=== PATIENT | female | born 1980 | race Caucasian/White ===

== ENCOUNTER 2019-10-06 13:23 | Inpatient (IN) | payer OTHER, SELFPAY ==
--- NOTE | ~2019-10-06 | XR_ITS ---
EXAMINATION: XR abdomen/kub 1V DATE: 10/07/2019 10:47 INDICATION: Abdominal pain and bloating. TECHNIQUE: A supine view of the abdomen was obtained. COMPARISON: CT abdomen and pelvis 10/06/2019 FINDINGS: There are no dilated loops of bowel. There is a small volume of stool in the colon. IMPRESSION: 1. Normal bowel gas pattern. Reviewed, dictated and finalized at location A.
--- NOTE | ~2019-10-06 | CT_ITS ---
EXAMINATION: CT abdomen pelvis w con DATE: 10/06/2019 15:42 INDICATION: Lower abdominal pain. History of kidney stone and infection. TECHNIQUE: Computed tomography (CT) of the abdomen and pelvis was performed with 100 cc Omnipaque 350 intravenous contrast. Automated exposure control and iterative reconstruction technique were employe d. Exam dose: 263.18 mGy-cm total exam DLP. COMPARISON: 01/11/2019 CT abdomen pelvis FINDINGS: The lung bases are clear. Heart size is normal. No pericardial or pleural effusion. The liver, gallbladder, bile ducts, spleen, pancreas, pancreatic duct, and adrenal glands and kidneys appear normal, with the exception of mild thyromegaly and a small left renal likely cyst. No urinary tract calculus or hydroureteronephrosis is detected. Normal caliber of the abdominal aorta. No intraperitoneal or retroperitoneal or pelvic mass lesion or adenopathy or ascites. There is an approximately 8.5 x 15.7 mm area of fluid attenuation in the anterior uterine wall and mi ld fluid in the lower uterine segment endometrial cavity. The uterus measures approximately 10 cm hei ght, up to approximately 4.6 cm anteroposterior dimension. There is some fluid containing nondilated small bowel segments with air-fluid levels, nonspecific. En teritis is a consideration. Adynamic ileus would be an additional consideration. There is some soft t issue stranding within the fat around the uterus and adnexal areas and the fluid containing small bow el loops. Consider pelvic inflammatory disease Probable postoperative change of appendectomy; recomme nd correlation with surgical history. There is a prominent amount of feces within the colon. No bowel obstruction or intraperitoneal free air is evident. IMPRESSION: Distal small bowel enteritis versus possible adynamic ileus, possibly secondary to pelvi c inflammatory disease Mild splenomegaly Small left renal cyst Nonspecific area of fluid attenuation in the anterior uterine wall and mild fluid in the lower uterin e segment endometrial cavity Reviewed, dictated and finalized at Location A. Reviewed, dictated and finalized at location B. IMPRESSION: Distal small bowel enteritis versus possible adynamic ileus, possi vanessa secondary to pelvic inflammatory disease Mild splenomegaly Small left renal cyst Nonspecific area of fluid attenuation in the anterior uterine wall and mild flu id in the lower uterine segment endometrial cavity
[2019-10-06 13:22] VITALS: PULSE 126; RESP 20; TEMP 37.4; O2SAT 93
--- NOTE | 2019-10-06 13:28 | ED.ABDPAIN ---
HPI - Abdominal Pain General Chief Complaint: Abdominal Pain Stated Complaint: ABD PN Time Seen by Provider: 10/06/19 13:28 Source: patient Mode of arrival: EMS Limitations: no limitations History of Present Illness HPI narrative: Pt is a 38 y/o female who presents to the ED, via EMS, with c/o LLQ ABD pain that started yesterday afternoon. Pt reports associated nausea. She has had a mild fever all week. Pt denies vomiting, CP, or SOB. She took Ibuprofen this morning with no relief. Pt denies a chance of being . MD elicited complaint: abdominal pain Onset (ago): day(s) (1) Location: LLQ Relieving factors: nothing Associated symptoms: nausea and fever Treatments prior to arrival: NSAIDs (Ibuprofen) Related Data Home Medications Medication Instructions Recorded Confirmed lisinopril 10 mg tablet 10 mg PO DAILY 07/15/19 dextroamphetamine-amphetamine 30 30 mg PO DAILY 08/07/19 mg tablet Allergies Allergy/AdvReac Type Severity Reaction Status Date / Time betamethasone Allergy Unknown Unknown Verified 08/07/19 08:23 morphine Allergy Unknown Hives Verified 08/07/19 08:28 prednisone Allergy Unknown swelling Verified 08/07/19 08:23 Review of Systems Review of Systems: All systems reviewed & are unremarkable except as noted in HPI and below Constitutional: Constitutional: Reports fever(s) Cardiovascular: Cardiovascular: Denies chest pain Respiratory: Respiratory: Denies dyspnea Gastrointestinal: Gastrointestinal: Reports abdominal pain, Reports nausea and Denies vomiting PMFSH Past Medical History Medical History ADHD Egg donor Subcutaneous cyst removed on groin and back Surgical History Surgical History History of History of tonsillectomy Hx of appendectomy Social History Social History Smoking status: Former smoker Smoking end date: 07/29/09 Alcohol intake: current 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 No clubbing, cyanosis or edema. NEURO: Awake and alert. Following commands, speech normal, no focal deficits SKIN:: Warm, dry. Normal Color PSYCHIATRIC: Normal affect/mood Course Course Emergency Course: Discussed with patient. States she has a history of pelvic inflammatory disease. Followed by Dr. Wray Discussed with Dr. Wray presentation work-up he agrees admission to our service. Request patient started on Ancef 1 g every 8 hours and doxycycline 100 mg every 12 hours and admit to her service Discussed with patient and family results of workup and diagnosis. Discussed need for admission. Patient and family understand and agree to current treatment plan Vital Signs Vital signs: Vital Signs Temperature 99.4 F 10/06/19 13:22 Pulse Rate 126 H 10/06/19 13:22 Respiratory Rate 20 10/06/19 13:22 Pulse Oximetry 93 10/06/19 13:22 Temperature 99.4 F 10/06/19 13:22 Pulse Rate 126 H 10/06/19 13:22 Respiratory Rate 20 10/06/19 13:22 Pulse Oximetry 93 10/06/19 13:22 MDM - Abdominal Pain Lab Data Result diagrams: 10/06/19 13:40 10/06/19 13:40 Labs: Lab Results 10/06/19 10/06/19 10/06/19 Range/Units 13:40 13:40 13:40 WBC 14.1 H (4.5-10.0) K/mm3 RBC 4.14 L (4.2-5.4) M/mm3 Hgb 1
[2019-10-06 13:50] LABS: Basophils Percent Auto 0.3 % (0.2-1.2); Eosinophils Percent Auto 0.3 % (0-4.4); Hematocrit 36.8 % (37.0-47.0); Hemoglobin 12.3 g/dL (12.0-15.0); Immature Granulocyte Absolute 0.07 K/mm3 (0.00-0.031); Immature Granulocyte Percent A 0.5 % (0-0.5); Lymphocytes Absolute Auto 1.14 K/mm3 (0.9-3.2); Lymphocytes Percent Auto 8.1 % (18.3-44.2); Mean Corpuscular HGB Conc 33.4 g/dl (32-36); Mean Corpuscular Hemoglobin 29.7 pg (26-34); Mean Corpuscular Volume 88.9 fl (80-100); Mean Platelet Volume 9.8 fl (7.4-10.4); Neutrophils Absolute Auto 11.8 K/mm3 (1.3-6.7); Neutrophils Percent Auto 83.8 % (45.5-73.1); Platelet Count Result 191 k/mm3 (150-375); Red Blood Count 4.14 M/mm3 (4.2-5.4); Red Cell Distribution Width 11.9 % (11.5-14.5); White Blood Count 14.1 K/mm3 (4.5-10.0)
[2019-10-06] MEDS: ONDANSETRON INJ 4 MG/2 ML VIAL IV PUSH ×2 (13:56→20:01)
[2019-10-06] MEDS: LACTATED RINGERS 1,000 ML 999 ML IV CONT (13:57)
[2019-10-06 14:01] LABS: Alanine Aminotransferase 13 U/L (4-35); Albumin Level 4.1 g/dL (3.5-5.1); Alkaline Phosphatase 56 U/L (38-126); Aspartate Amino Transferase 17 U/L (14-36); Bilirubin,Total 1.6 mg/dL (0.2-1.3); Blood Urea Nitrogen 13 mg/dL (7-17); Calcium 8.8 mg/dL (8.4-10.2); Carbon Dioxide 26 mmol/L (22-30); Chloride 102 mmol/L (98-107); Estimated CRCL calculation 107 ml/min; Estimated Glomerular Filt Rate > 60; Glucose 107 mg/dL (65-105); Lipase 19 U/L (23-300); Potassium 3.8 mmol/L (3.4-5.0); Sodium 135 mmol/L (137-145)
[2019-10-06 14:22] LABS: Lactic Acid Reflex < 0.5 mmol/L (0.7-2.1)
[2019-10-06] MEDS: HYDROMORPHONE HCL 1 MG/ML INJ 0.5 MG IV PUSH ×4 (15:27→20:09)
[2019-10-06 15:39] LABS: Add Urine Microscopic? YES; Amorphous Sediment Urine Few; Appearance Urine Clear (Clear); Bilirubin Urine Negative (Negative); Blood Urine Negative (Negative); Color Urine Yellow (Yellow); Glucose Urine UA Negative (Negative); Ketones Urine Trace mg/dL (Negative); Leukocyte Esterase Ur Negative LEU/UL (Negative); Mucus Urine Heavy /lpf; Nitrate Urine Negative (Negative); Protein Urine Negative (Negative); Specific Grav Ur 1.016 (1.001-1.035); Squamous Epithelial Cell Urine Many /hpf (Few); Urobilinogen Urine Negative mg/dL (<2.0); WBC Urine 0-3 /hpf
[2019-10-06] MEDS: SODIUM CHLORIDE 0.9% IV 1,000 ML 999 ML IV CONT (16:30)
[2019-10-06 16:44] VITALS: BP 126/77; PULSE 95; RESP 16; O2SAT 97
[2019-10-06 18:38] VITALS: BP 118/76; PULSE 89; RESP 19; O2SAT 100
[2019-10-06 20:05] VITALS: BP 116/61; PULSE 90; RESP 19; O2SAT 100
[2019-10-06] MEDS: SODIUM CHLORIDE 0.9% IV 1,000 ML 125 ML IV CONT (20:07)
--- NOTE | 2019-10-06 22:45 | PC.NURSE ---
This patient, Shoshana Mccabe, was admitted to 2 Medical Room 242-. Patient/family oriented to hospital policies and general routines including ID bracelet, bed and alarms, visiting hours, pain management, procedures, bathroom and other care routines, personal items, smoking policy, room service/diet, and visiting hours. Valuables list has been completed. Information on how to activate the Rapid Response Team has been discussed. Patient/Family are encouraged to report perceived risks to care and to ask questions if they do not understand what they are told or what they should do.
[2019-10-06 23:02] VITALS: BP 122/68; PULSE 94; RESP 16; TEMP 37.1; O2SAT 100; BMI 22.6
[2019-10-07] MEDS: ONDANSETRON INJ 4 MG/2 ML VIAL IV PUSH ×3 (00:52→19:41)
[2019-10-07] MEDS: HYDROMORPHONE HCL 1 MG/ML INJ IV PUSH ×3 (00:55→13:38)
[2019-10-07] MEDS: KETOROLAC 30 MG/ML VIAL (*BKC) IV PUSH ×3 (04:14→18:10)
[2019-10-07 05:58] LABS: Basophils Percent Auto 0.3 % (0.2-1.2); Eosinophils Absolute Auto 0.1 K/mm3 (0-0.3); Eosinophils Percent Auto 0.6 % (0-4.4); Hematocrit 32.5 % (37.0-47.0); Hemoglobin 10.4 g/dL (12.0-15.0); Immature Granulocyte Absolute 0.05 K/mm3 (0.00-0.031); Immature Granulocyte Percent A 0.5 % (0-0.5); Lymphocytes Absolute Auto 1.01 K/mm3 (0.9-3.2); Lymphocytes Percent Auto 9.4 % (18.3-44.2); Mean Corpuscular Hemoglobin 29.4 pg (26-34); Mean Corpuscular Volume 91.8 fl (80-100); Mean Platelet Volume 10.6 fl (7.4-10.4); Monocytes Absolute Auto 0.8 K/mm3 (0.1-0.6); Monocytes Percent Auto 7.4 % (2.6-8.5); Neutrophils Absolute Auto 8.8 K/mm3 (1.3-6.7); Neutrophils Percent Auto 81.8 % (45.5-73.1); Platelet Count Result 143 k/mm3 (150-375); Red Blood Count 3.54 M/mm3 (4.2-5.4); White Blood Count 10.8 K/mm3 (4.5-10.0)
[2019-10-07 06:00] VITALS: BP 117/68; PULSE 98; RESP 16; TEMP 37.1; O2SAT 97
[2019-10-07 06:08] LABS: Alanine Aminotransferase 11 U/L (4-35); Albumin Level 3.2 g/dL (3.5-5.1); Alkaline Phosphatase 55 U/L (38-126); Aspartate Amino Transferase 16 U/L (14-36); Blood Urea Nitrogen 8 mg/dL (7-17); Carbon Dioxide 23 mmol/L (22-30); Chloride 106 mmol/L (98-107); Estimated CRCL calculation 127 ml/min; Estimated Glomerular Filt Rate > 60; Glucose 95 mg/dL (65-105); Potassium 3.2 mmol/L (3.4-5.0); Sodium 133 mmol/L (137-145)
[2019-10-07] MEDS: SODIUM CHLORIDE 0.9% IV 1,000 ML 125 ML IV CONT (06:37)
[2019-10-07 08:00] VITALS: PULSE 98; RESP 16; O2SAT 97
--- NOTE | 2019-10-07 10:01 | PM.IMHP ---
H&P: HPI History of Present Illness Chief complaint: ABD PN Narrative: Shoshana Mccabe is a 38 year old female she presented to the emergency room on 10/05 with complaints of severe abdominal and pelvic pain which started on 10/04. She states that she gets a cramp type of pain in her lower and her upper abdomen and then her abdomen gets distended. She states this has been happening intermittently for over 3-4 months. It usually goes away intermittently. But the pain got worse on yesterday. She denied any vaginal discharge. She denied any fevers. She denies any emesis. She does feel nauseated. She does have a history of pelvic inflammatory disease after having a retained tampon. She also has a history of pelvic pain possible endometriosis. She has been given option medical management or hysterectomy at her prior visits and did not opt for either. She denies dyspareunia though states she has not had intercourse since the acute onset of pain. When she was evaluated in the emergency department the position evaluating her stated she had large amount of vaginal discharge,cervical motion tenderness and uterine tenderness and she had an elevated white blood count this did give her the criteria for pelvic inflammatory disease. She did have a CT which also showed inflammatory changes in the pelvis that are also consistent with pelvic inflammatory disease and also possible small-bowel enteritis versus adynamic ileus. she states her last bowel movement was Saturday. Meds were normal. She states that her pain in the past tense to start on her left lower side and then the rest of the abdomen gets tender and she gets bloated. She has been evaluated in July by General surgery for a possible groin mass. Review of Systems Review of Systems: All systems reviewed & are unremarkable except as noted in HPI and below Cardiovascular: Cardiovascular: Reports no additional cardiovascular complaints, Denies chest pain and Denies dyspnea Respiratory: Respiratory: Reports no additional respiratory complaints and Denies dyspnea Gastrointestinal: Gastrointestinal: Reports abdominal pain, Denies change in bowel habits, Denies diarrhea, Reports nausea and Denies vomiting Genitourinary: Genitourinary: Reports pelvic pain Integumentary/Breasts: Skin/Breast: Reports system reviewed and no additional complaints, except as docu Neurologic: Reports system reviewed and no additional complaints, except as documented [facility] Past Medical History Medical History (Updated 10/07/19 @ 10:13 by Abad Kinney MD) ADHD Egg donor Hypokalemia Hyponatremia Subcutaneous cyst removed on groin and back Surgical History Surgical History History of History of tonsillectomy Hx of appendectomy Family History Family History Grandparent Diabetes mellitus, Onset Age: 198 Family history of malignant neoplasm of stomach, Onset Age: 199 Family history of lupus erythematosus, Onset Age: 200 Family history of malignant neoplasm of uterus Family history of malignant neoplasm of ovary Mother Hypertension Family history of elevated blood lipids Cerebrovascular accident Sibling Hypertension Other Family history of malignant neoplasm of breast Social History Social History Smoking packs per day: 1 Smoking cigarettes per day: 20.0 Years smoked: 1 Smoking pack-years: 1.00 Smoking status: Former smoker Tobacco type: cigarettes Second hand tobacco smoke exposure: Yes Smoking end date: 07/29/09 Alcohol intake: current Drinks per week: 2 Substance use: never Substance use type: does not use 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
--- NOTE | 2019-10-07 12:11 | WPDGICN ---
Assessment and Plan Assessment and plan (1) Adynamic ileus: Code(s): K56.0 - Paralytic ileus Status: Acute Assessment and Plan: Patient has adynamic ileus. On exam. This is consistent with her CT scan. Most likely on the basis of PID. Plan is for NG tube decompression to Koul Eusebio suppositories will be started. Hopefully to give her some relief. Because of rebound tenderness she should be watched closely with daily obstructive series. To exclude any evidence for perforation. (2) Acute pelvic inflammatory disease: Code(s): N73.0 - Acute parametritis and pelvic cellulitis Status: Acute Assessment and Plan: Medical therapy under the direction of Dr. Kinney. She will receive antibiotics. She will need to be followed closely. GI Consult Note Consult date/time: 10/07/19 12:11 HPI: Shoshana Mccabe is a 38 year old female seen in evaluation at the request of Dr. Abad Kinney. Patient reports having abdominal discomfort over the last month period is worse over the last 4-5 days. Became so intense she went to the emergency room yesterday she was admitted to the hospital felt to have PID. A CT scan in the emergency room suggest inflammatory changes in the pelvis consistent with PID also question a day mac ileus. Patient stage this is a bowel movements since last Saturday 5 days prior. She a is hungry but has no appetite stating that eating makes her feel worse. She denies a fever. She has had no recent travel. Family history is noncontributory. Review of Systems Review of Systems: All systems reviewed & are unremarkable except as noted in HPI and below PMFSH Past Medical History Medical History ADHD Egg donor Hypokalemia Hyponatremia Subcutaneous cyst removed on groin and back Surgical History Surgical History History of History of tonsillectomy Hx of appendectomy Family History Family History Grandparent Diabetes mellitus, Onset Age: 198 Family history of malignant neoplasm of stomach, Onset Age: 199 Family history of lupus erythematosus, Onset Age: 200 Family history of malignant neoplasm of uterus Family history of malignant neoplasm of ovary Mother Hypertension Family history of elevated blood lipids Cerebrovascular accident Sibling Hypertension Other Family history of malignant neoplasm of breast Social History Social History Smoking packs per day: 1 Smoking cigarettes per day: 20.0 Years smoked: 1 Smoking pack-years: 1.00 Smoking status: Former smoker Tobacco type: cigarettes Second hand tobacco smoke exposure: Yes Smoking end date: 07/29/09 Alcohol intake: current Drinks per week: 2 Substance use: never Substance use type: does not use Additional occupation/education comments: [employer] Gender identity (if verbalized by the patient): Female 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) Agree to blood products: Yes Meds Home Medications and Allergies Home Medications Medication Instructions Recorded Confirmed Type dextroamphetamine-amphetamine 30 10 mg PO BID 08/07/19 10/06/19 History mg tablet lisinopril 10 mg PO DAILY 10/06/19 10/06/19 History Allergies Allergy/AdvReac Type Severity Reaction Status Date / Time morphine Allergy Unknown Hives Verified 10/06/19 19:00 prednisone Allergy Unknown swelling Verified 10/06/19 19:00 Vital Signs Vital Signs - 24 hr 10/06/19 13:22 10/06/19 16:44 10/06/19 18:38 Temperature 37.4 C Pulse Rate 126 H 95 89 Respiratory Rate 20 16 19 Blood Pressure 126/77 118/76 Pulse Oximetry 93 97 100 10/06/19 20:05 10/06/19 23:02 10/07/19 06:00 Temperature 37.1 C 37.1 C Pulse Rate 90 94 98 Respiratory Rate 19 16 16 Blood Pres
[2019-10-07] MEDS: BISACODYL 10 MG SUPPOSITORY RECTAL (12:21)
[2019-10-07 14:00] VITALS: BP 119/51; PULSE 105; RESP 16; TEMP 37.9; O2SAT 100
--- NOTE | 2019-10-07 14:26 | PC.NURSE ---
Pt has refused the NG tube after several attempts to insert, Dr Florez made aware. She was educated on the Ileus, risk of perforated bowel, nasogatric tube benefits and given written information on aforementioned items. Dr. Florez made aware she is upset and still refused to have the tube inserted,he states I am not going to change my orders, lots of people have had the tube and she is no better than anyone else,let someone else try. without the tube she is not going to get any better. Renata our charge nurse was made aware of situation.
[2019-10-07] MEDS: SODIUM CHLORIDE 0.9% IV 1,000 ML 75 ML IV CONT (16:09)
[2019-10-07] MEDS: POTASSIUM CHLORIDE 20 MEQ TABLET 40 MEQ PO (16:12)
[2019-10-07 16:23] LABS: Lactic Acid 0.5 mmol/L (0.7-2.1)
[2019-10-07 16:24] LABS: Blood Urea Nitrogen 11 mg/dL (7-17); Calcium 7.9 mg/dL (8.4-10.2); Carbon Dioxide 23 mmol/L (22-30); Chloride 104 mmol/L (98-107); Estimated CRCL calculation 127 ml/min; Estimated Glomerular Filt Rate > 60; Glucose 84 mg/dL (65-105); Magnesium 1.6 mg/dL (1.6-2.3); Potassium 3.2 mmol/L (3.4-5.0); Sodium 135 mmol/L (137-145)
[2019-10-07] MEDS: ACETAMINOPHEN 325 MG TABLET 650 MG PO (19:33)
--- NOTE | 2019-10-07 20:00 | P.CONS_ITS ---
Assessment and Plan Assessment and plan (1) Sepsis: Code(s): A41.9 - Sepsis, unspecified organism Status: Acute Assessment and Plan: * Supported by fever, tachycardia, and leukocytosis in the setting of acute p elvic inflammatory disease. * Blood cultures were not drawn prior to initiation of antibiotics, but we will draw these today. * Vital signs are stable and she is nontoxic in appearance. (2) Acute pelvic inflammatory disease: Code(s): N73.0 - Acute parametritis and pelvic cellulitis Status: Acute Assessment and Plan: * Management per Dr. Kinney. * Day 2 cefazolin 1 gram q.8 hours and doxycycline 100 milligrams q.12 hours. (3) Adynamic ileus: Code(s): K56.0 - Paralytic ileus Status: Acute Assessment and Plan: * Dr. Florez was consulted by the admitted service. * He believes ileus is likely secondary to PID. * Docusate suppository without a whole lot of benefit today. (4) Hypokalemia: Code(s): E87.6 - Hypokalemia Status: Acute Assessment and Plan: * Potassium replaced and monitored. * Check magnesium level as well. (5) Hyponatremia: Code(s): E87.1 - Hypo-osmolality and hyponatremia Status: Acute Assessment and Plan: * Patient has had about 2.5 liters of isotonic fluids since admission yesterday. * Sodium has gone from 135 to 133 since admission. * Will lower rate of IV fluids as patient complains of feeling like she is retaining water. * Will repeat electrolytes in a.m.. (6) Thrombocytopenia: Code(s): D69.6 - Thrombocytopenia, unspecified Status: Acute Assessment and Plan: * Platelets 191 on admission, now 143 today. * Mild splenomegaly noted on imaging yesterday. * Continue to monitor for now. (7) History of anemia: Code(s): Z86.2 - Personal history of diseases of the blood and blood-forming organs and certain disorders involving the immune mechanism Status: Acute Assessment and Plan: * Hemoglobin has dropped nearly 2 grams since hesitation to the emergency dep artment. * Most likely dilution from IV fluid rehydration. * She does have a history of anemia with a hemoglobin level that is frequently around 10.0. * Continue to monitor. (8) Hypertension: Code(s): I10 - Essential (primary) hypertension Status: Acute Assessment and Plan: * Blood pressures were reviewed and they are stable. * Patient has a prescription for lisinopril 10 milligrams daily yet she has not taken it for approximately 1 week due to feeling poorly. * Blood pressures are well controlled and thus will continue to hold lisinopril. * Continue to monitor daily. (9) Cardiac murmur: Code(s): R01.1 - Cardiac murmur, unspecified Status: Acute Assessment and Plan: * The patient has no known history of heart murmur. * Given history of shortness of breath and lightheadedness, would be prudent to obtain echocardiogram. Additional Plan Thank you for allowing us to participate in this patient's care. Please do not hesitate to contact us with any questions. We will follow with you. Supervising physician for this medical consultation is Dr. Jeremy Garcia. HPI Data of Consult Date/Time: 10/07/19 14:36 Requesting Physician: Abad Kinney MD Primary Care Provider: Ananda Zabala MD Consult Narrative Narrative: Shoshana Mccabe is a 38-yea
--- NOTE | 2019-10-07 20:00 | WPDCN ---
Assessment and Plan Assessment and plan (1) Sepsis: Code(s): A41.9 - Sepsis, unspecified organism Status: Acute Assessment and Plan: Supported by fever, tachycardia, and leukocytosis in the setting of acute pelvic inflammatory disease. Blood cultures were not drawn prior to initiation of antibiotics, but we will draw these today. Vital signs are stable and she is nontoxic in appearance. (2) Acute pelvic inflammatory disease: Code(s): N73.0 - Acute parametritis and pelvic cellulitis Status: Acute Assessment and Plan: Management per Dr. Kinney. Day 2 cefazolin 1 gram q.8 hours and doxycycline 100 milligrams q.12 hours. (3) Adynamic ileus: Code(s): K56.0 - Paralytic ileus Status: Acute Assessment and Plan: Dr. Florez was consulted by the admitted service. He believes ileus is likely secondary to PID. Docusate suppository without a whole lot of benefit today. (4) Hypokalemia: Code(s): E87.6 - Hypokalemia Status: Acute Assessment and Plan: Potassium replaced and monitored. Check magnesium level as well. (5) Hyponatremia: Code(s): E87.1 - Hypo-osmolality and hyponatremia Status: Acute Assessment and Plan: Patient has had about 2.5 liters of isotonic fluids since admission yesterday. Sodium has gone from 135 to 133 since admission. Will lower rate of IV fluids as patient complains of feeling like she is retaining water. Will repeat electrolytes in a.m.. (6) Thrombocytopenia: Code(s): D69.6 - Thrombocytopenia, unspecified Status: Acute Assessment and Plan: Platelets 191 on admission, now 143 today. Mild splenomegaly noted on imaging yesterday. Continue to monitor for now. (7) History of anemia: Code(s): Z86.2 - Personal history of diseases of the blood and blood-forming organs and certain disorders involving the immune mechanism Status: Acute Assessment and Plan: Hemoglobin has dropped nearly 2 grams since hesitation to the emergency department. Most likely dilution from IV fluid rehydration. She does have a history of anemia with a hemoglobin level that is frequently around 10.0. Continue to monitor. (8) Hypertension: Code(s): I10 - Essential (primary) hypertension Status: Acute Assessment and Plan: Blood pressures were reviewed and they are stable. Patient has a prescription for lisinopril 10 milligrams daily yet she has not taken it for approximately 1 week due to feeling poorly. Blood pressures are well controlled and thus will continue to hold lisinopril. Continue to monitor daily. (9) Cardiac murmur: Code(s): R01.1 - Cardiac murmur, unspecified Status: Acute Assessment and Plan: The patient has no known history of heart murmur. Given history of shortness of breath and lightheadedness, would be prudent to obtain echocardiogram. Additional Plan Thank you for allowing us to participate in this patient's care. Please do not hesitate to contact us with any questions. We will follow with you. Supervising physician for this medical consultation is Dr. Jeremy Garcia. HPI Data of Consult Date/Time: 10/07/19 14:36 Requesting Physician: Abad Kinney MD Primary Care Provider: Ananda Zabala MD Consult Narrative Narrative: Shoshana Mccabe is a 38-year-old female whom the hospitalist service has been consulted for treatment and evaluation of electrolyte abnormalities including hyponatremia and hypokalemia. Her medical history is significant for history of pelvic inflammatory disease in December 2018 due to retained tampon, distant history of single episode of colitis, kidney stones, and reported endometriosis. She presented to the emergency department on the afternoon of October 06, 2019 for evaluation of left lower quadrant abdominal pain, which started the prior afternoon. She al
[2019-10-07 22:00] VITALS: BP 114/58; PULSE 84; RESP 16; TEMP 36.8; O2SAT 97
--- NOTE | 2019-10-08 00:59 | ECHO_ITS ---
Patient Info Name: Shoshana Mccabe Age: 38 years : 1980 Gender: Female Ht: 68 in Wt: 149 lbs BSA: 1.80 m2 HR: 90 bpm BP: 121 / 59 mmHg Heart Rhythm: Sinus Rhythm Technical Quality: Good Exam Date: 10/08/2019 11:19 AM Exam Location: [facility] Patient Status: Outpatient Admit Date: 10/06/2019 Staff Ordering Physician: Rina Garrison PA-C Fur Clipper: Faraz Barboza RDCS Attending Provider: Abad Kinney MD Referring Physician: Meli NAJERA; Exam Type: CA echo doppler color flow Study Info Indications R06.00 - Dyspnea, unspecified R01.1 - Cardiac murmur, unspecified Complete two-dimensional, color flow and Doppler transthoracic echocardiogram is performed. Strain analysis performed. History/Risk Factors Murmur and dyspnea on exertion; HTN, sepsis, bowel obstruction. Summary 1. Normal left ventricular size with borderline concentric hypertrophy and good systolic function of all segments. The ejection fraction was measured at 63%. Borderline criteria for diastolic dysfunction is present. The global longitudinal strain was -19%, normal, confirming good systolic function. 2. Trace mitral and tricuspid regurgitation. 3. Dilated inferior vena cava with <50% collapse upon inspiration consistent with significantly elevated right atrial pressure, 15 mmHg. 4. Mild pulmonary hypertension, estimated pulmonary arterial systolic pressure is 44 mmHg. 5. Normal sinus rhythm. Left Ventricle Left ventricular chamber dimension is normal. Left ventricular systolic function is normal, estimated at 60-65%. There is mildly increased left ventricular wall thickness. Left ventricular septal wall motion is abnormal. The left ventricular diastolic function is normal. Global longitudinal strain is normal at 19 %. Right Ventricle Right ventricular chamber dimension is normal. Right ventricular systolic function is normal. Left Atria Left atrial chamber dimension is mildly enlarged. Right Atria Right atrial chamber dimension is normal. Aortic Valve The aortic valve is trileaflet. There is no aortic valve sclerosis. There is no aortic valve stenosis. There is no aortic valve regurgitation. Pulmonic Valve The pulmonic valve is normal. There is no pulmonic valve stenosis. There is no pulmonic regurgitation. Mitral Valve The mitral valve has normal leaflets. There is no mitral valve stenosis. There is trace mitral valve regurgitation. Tricuspid Valve The tricuspid valve leaflets are normal. There is no significant tricuspid valve stenosis. There is trace tricuspid valve regurgitation. Mild pulmonary hypertension, estimated pulmonary arterial systolic pressure is 44 mmHg. Pericardium/Pleural The pericardium appears normal. There is no pericardial effusion. Inferior Vena Cava Dilated inferior vena cava with <50% collapse upon inspiration consistent with significantly elevated right atrial pressure, 15 mmHg. Aorta The aortic root size at the sinus of Valsalva is normal. The prox ascending aorta size is normal. Left Ventricular Outflow Tract Name Value Normal LVOT 2D LVOT Diameter 1.8 cm LVOT Doppler
[2019-10-08] MEDS: KETOROLAC 30 MG/ML VIAL (*BKC) IV PUSH ×2 (03:06→08:51)
[2019-10-08 06:00] VITALS: BP 121/59; PULSE 95; RESP 16; TEMP 36.8; O2SAT 100
[2019-10-08 06:13] LABS: Basophils Percent Auto 0.2 % (0.2-1.2); Eosinophils Absolute Auto 0.1 K/mm3 (0-0.3); Eosinophils Percent Auto 0.7 % (0-4.4); Hematocrit 30.2 % (37.0-47.0); Immature Granulocyte Absolute 0.06 K/mm3 (0.00-0.031); Immature Granulocyte Percent A 0.6 % (0-0.5); Lymphocytes Absolute Auto 0.73 K/mm3 (0.9-3.2); Lymphocytes Percent Auto 7.3 % (18.3-44.2); Mean Corpuscular HGB Conc 33.1 g/dl (32-36); Mean Corpuscular Hemoglobin 29.9 pg (26-34); Mean Corpuscular Volume 90.4 fl (80-100); Mean Platelet Volume 10.6 fl (7.4-10.4); Monocytes Percent Auto 9.6 % (2.6-8.5); Neutrophils Absolute Auto 8.1 K/mm3 (1.3-6.7); Neutrophils Percent Auto 81.6 % (45.5-73.1); Platelet Count Result 137 k/mm3 (150-375); Red Blood Count 3.34 M/mm3 (4.2-5.4); Red Cell Distribution Width 11.6 % (11.5-14.5)
[2019-10-08 06:32] LABS: Blood Urea Nitrogen 10 mg/dL (7-17); Calcium 8.3 mg/dL (8.4-10.2); Carbon Dioxide 22 mmol/L (22-30); Chloride 106 mmol/L (98-107); Estimated CRCL calculation 127 ml/min; Estimated Glomerular Filt Rate > 60; Glucose 88 mg/dL (65-105); Magnesium 1.7 mg/dL (1.6-2.3); Phosphorus 1.9 mg/dL (2.5-4.5); Potassium 3.6 mmol/L (3.4-5.0); Sodium 134 mmol/L (137-145)
--- NOTE | 2019-10-08 07:54 | WPDGIPROGNO ---
Progress Note: A&P Additional Plan Patient continues to report significant abdominal pain diffusely. She has begun to pass flatus and had a small bowel movement. Physical exam reveals her to be afebrile. She is anicteric. Lungs are clear. Heart without murmur. Abdomen is soft. Bowel sounds are present today. She remains diffusely tender. Less rebound noted. Impression 1. resolving ileus. 2. PID. Plan is to continue Dulcolax suppositories. Allow ice chips. Very slowly reintroduce diet if symptoms continue to improve. Continue broad-spectrum antibiotic coverage. Subjective Date/time seen: 10/08/19 07:54 Objective Data Vital Signs Vital Signs: Vital Signs - 24 hr 10/07/19 08:00 10/07/19 14:00 10/07/19 22:00 Temperature 37.9 C H 36.8 C Pulse Rate 98 105 H 84 Respiratory Rate 16 16 16 Blood Pressure 119/51 L 114/58 L Pulse Oximetry 97 100 97 10/08/19 06:00 Temperature 36.8 C Pulse Rate 95 Respiratory Rate 16 Blood Pressure 121/59 L Pulse Oximetry 100 Intake/Output Intake/Output: Intake & Output 10/05/19 10/06/19 10/07/19 10/08/19 23:59 23:59 23:59 23:59 Intake Total 1505 2095 0 Output Total 550 600 Balance 1505 1545 -600 Meds/Results Medications: Active Medications Generic Name Dose Route Start Last Admin Trade Name Freq PRN Reason Stop Dose Admin Acetaminophen 650 mg 10/07/19 18:47 10/07/19 19:33 Tylenol Tablet PO 650 mg Q4H PRN Administration Headache Bisacodyl 10 mg 10/08/19 09:00 Dulcolax Suppository RECTAL QAM BAUDILIO Hydromorphone HCl 1 mg 10/07/19 00:28 10/07/19 13:38 Dilaudid Inj IV PUSH 1 mg Q3H PRN Administration Pain Rated 7-10 Sodium Chloride 1,000 mls @ 75 mls/hr 10/06/19 16:30 10/07/19 16:09 Normal Saline Iv IV CONT 75 mls/hr .[id number] BAUDILIO Administration Doxycycline Hyclate 100 mg/ 100 mls @ 100 mls/hr 10/07/19 09:00 03/11/20 23:15 Dextrose IVPB Infused Q12HR BAUDILIO Infusion Cefepime HCl 2 gm in 50 mls @ 100 mls/hr 10/06/19 21:00 10/07/19 21:48 Maxipime 2 Gm/D5w 50 Ml IVPB Infused Q12HR BAUDILIO Infusion Magnesium Sulfate 2 gm in 50 mls @ 50 mls/hr 10/08/19 07:37 Magnesium Sulf 2 Gm/Water 50ml IVPB 10/08/19 08:36 ONCE ONE Ketorolac Tromethamine 30 mg 10/07/19 00:27 10/08/19 03:06 Toradol Inj IV PUSH 30 mg Q6H PRN Administration Pain Rated 4-6 Ondansetron HCl 4 mg 10/06/19 16:30 10/07/19 19:41 Zofran Inj IV PUSH 4 mg Q4H PRN Administration Nausea Sodium Phosphate 250 mg 10/08/19 09:00 K-Phos Neutral PO BID [facility] Radiology Results: ITS Impressions Abdomen/Pelvis CT 10/06/19 15:44 IMPRESSION: Distal small bowel enteritis versus possible adynamic ileus, possibly secondary to pelvic inflammatory disease Mild splenomegaly Small left renal cyst Nonspecific area of fluid attenuation in the anterior uterine wall and mild fluid in the lower uterine segment endometrial cavity Abdomen X-Ray 10/07/19 11:08 IMPRESSION: 1. Normal bowel gas pattern. Labs Labs: Laboratory Results - last 24 hr 10/07/19 10/07/19 10/08/19 15:58 15:59 05:17 WBC 10.0 RBC 3.34 L Hgb 10.0 L Hct 30.2 L MCV 90.4 MCH 29.9 MCHC 33.1 RDW 11.6 Plt Count 137 L MPV 10.6 H Immature Gran % (Auto) 0.6 H Neut % (Auto) 81.6 H Lymph % (Auto) 7.3 L [place] % (Auto) 9.6 H Eos % (Auto) 0.7 Baso % (Auto) 0.2 Lymph # (Auto) 0.73 L [place] # (Auto) 1.0 H Eos # (Auto) 0.1 Baso # (Auto) 0.0 Abs Immat Gran (auto) 0.06 H Absolute Neuts (auto) 8.1 H Absolute Nucleated RBC 0.0 Nucleated RBC % 0.0 Sodium 135 L Potassium 3.2 L Chloride 104 Carbon Dioxide 23 BUN 11 Creatinine 0.50 L Estim Creat Clear Calc 127 Estimated GFR > 60 Glucose 84 Lactic Acid 0.5 L Calcium 7.9 L Phosphorus Magnesium 1.6 10/08/19 05:17 WBC RBC Hgb
[2019-10-08 08:00] VITALS: PULSE 95; RESP 16; O2SAT 100
--- NOTE | 2019-10-08 08:38 | PM.GYNPNOP ---
[employer] - A/P Assessment and plan (1) Acute pelvic inflammatory disease: Code(s): N73.0 - Acute parametritis and pelvic cellulitis Status: Acute Assessment and Plan: Her clinical symptoms slightly improved. Will continue IV antibiotics for 48 which will be tonight. If symptoms not significantly improved after 48 hours then may need laparoscopy. (2) Adynamic ileus: Code(s): K56.0 - Paralytic ileus Status: Acute Assessment and Plan: Resolving. Appreciate GI consult. (3) Hypokalemia: Code(s): E87.6 - Hypokalemia Status: Acute Assessment and Plan: Resolved. Time Spent With Patient Time: Total time spent is greater than 50% in coordination of care (as documented) at patient's floor/unit and/or counseling patient: Time with patient: less than 15 minutes [employer]- PN:Subj Post-Op Subjective Date/time seen: 10/08/19 08:38 She states her pain is a little better. She has an intermittent headache. No nausea. Positive BM. Exam Const: General: cooperative, no acute distress and alert Resp: Effort & Inspection: normal respiratory effort : Other: tender diffusely improved from prior exam. +BS throughout. Extrem: Other: Nontender [employer] - PN: Obj Data Vital Signs Vital Signs: Vital Signs - 24 hr 10/07/19 14:00 10/07/19 22:00 10/08/19 06:00 Temperature 100.3 F H 98.2 F 98.2 F Pulse Rate 105 H 84 95 Respiratory Rate 16 16 16 Blood Pressure 119/51 L 114/58 L 121/59 L Pulse Oximetry 100 97 100 Intake/Output Intake/Output: Intake & Output 10/05/19 10/06/19 10/07/19 10/08/19 23:59 23:59 23:59 23:59 Intake Total 1505 2095 0 Output Total 550 600 Balance 1505 1545 -600 Meds/Results Medications: Active Medications Generic Name Dose Route Start Last Admin Trade Name Freq PRN Reason Stop Dose Admin Acetaminophen 650 mg 10/07/19 18:47 10/07/19 19:33 Tylenol Tablet PO 650 mg Q4H PRN Administration Headache Bisacodyl 10 mg 10/08/19 09:00 Dulcolax Suppository RECTAL QAM BAUDILIO Hydromorphone HCl 1 mg 10/07/19 00:28 10/07/19 13:38 Dilaudid Inj IV PUSH 1 mg Q3H PRN Administration Pain Rated 7-10 Sodium Chloride 1,000 mls @ 75 mls/hr 10/06/19 16:30 10/07/19 16:09 Normal Saline Iv IV CONT 75 mls/hr .[id number] BAUDILIO Administration Doxycycline Hyclate 100 mg/ 100 mls @ 100 mls/hr 10/07/19 09:00 10/07/19 23:15 Dextrose IVPB Infused Q12HR BAUDILIO Infusion Cefepime HCl 2 gm in 50 mls @ 100 mls/hr 10/06/19 21:00 10/07/19 21:48 Maxipime 2 Gm/D5w 50 Ml IVPB Infused Q12HR [facility] Infusion Ketorolac Tromethamine 30 mg 10/07/19 00:27 10/08/19 03:06 Toradol Inj IV PUSH 30 mg Q6H PRN Administration Pain Rated 4-6 Ondansetron HCl 4 mg 10/06/19 16:30 10/07/19 19:41 Zofran Inj IV PUSH 4 mg Q4H PRN Administration Nausea Sodium Phosphate 250 mg 10/08/19 09:00 K-Phos Neutral PO BID [facility] Radiology Results: ITS Impressions Abdomen/Pelvis CT 10/06/19 15:44 IMPRESSION: Distal small bowel enteritis versus possible adynamic ileus, possibly secondary to pelvic inflammatory disease Mild splenomegaly Small left renal cyst Nonspecific area of fluid attenuation in the anterior uterine wall and mild fluid in the lower uterine segment endometrial cavity Abdomen X-Ray 10/07/19 11:08 IMPRESSION: 1. Normal bowel gas pattern. Labs CBC & Chem 7: 10/08/19 05:17 10/08/19 05:17 Labs: Laboratory Results - last 24 hr 10/07/19 10/07/19 10/08/19 15:58 15:59 05:17 WBC 10.0 RBC 3.34 L Hgb 10.0 L Hct 30.2 L MCV 90.4 MCH 29.9 MCHC 33.1 RDW 11.6 Plt Count 137 L MPV 10.6 H Immature Gran % (Auto) 0.6 H Neut % (Auto) 81.6 H Lymph % (Auto) 7.3 L [place] % (Auto) 9.6 H Eos % (Auto) 0.7 Baso % (Auto) 0.2 Lymph # (Auto) 0.73 L [place] # (Auto) 1.0 H Eos # (Auto) 0.1 Baso # (Au
[2019-10-08] MEDS: SODIUM CHLORIDE 0.9% IV 1,000 ML 75 ML IV CONT (08:42)
[2019-10-08] MEDS: BISACODYL 10 MG SUPPOSITORY RECTAL (08:43)
[2019-10-08] MEDS: POTASSIUM PHOS/SODIUM PHOS 250 MG TABLET PO ×2 (08:45→16:47)
[2019-10-08] MEDS: MAGNESIUM SULF 2 GM/WATER 50ML 2 GM/50 ML BAG IVPB (09:02)
--- NOTE | 2019-10-08 10:59 | PM.IMPN ---
Progress Note: A&P Assessment and Plan (1) Acute pelvic inflammatory disease: Code(s): N73.0 - Acute parametritis and pelvic cellulitis Status: Acute Assessment and Plan: Management per the primary service. She remains on IV ancef and doxycycline today. (2) Sepsis: Qualifiers: Sepsis acute organ dysfunction status: unspecified Sepsis type: sepsis due to unspecified organism Qualified Code(s): A41.9 - Sepsis, unspecified organism Code(s): A41.9 - Sepsis, unspecified organism Status: Acute Assessment and Plan: Evident by fever, tachycardia, and leukocytosis in the setting of acute pelvic inflammatory disease. Blood cultures drawn after antibiotics were initiated, pending. Vital signs are stable today. (3) Adynamic ileus: Code(s): K56.0 - Paralytic ileus Status: Acute Assessment and Plan: May be secondary to PID. Dr. Florez was consulted by the primary service. Improving. Patient reports BM this morning. (4) Hypokalemia: Code(s): E87.6 - Hypokalemia Status: Acute Assessment and Plan: K stable at 3.6 today. Mag 1.7 and replaced. Recheck in AM. (5) Hyponatremia: Code(s): E87.1 - Hypo-osmolality and hyponatremia Status: Acute Assessment and Plan: Rate of fluids decreased at 75mL/hr, continue these for now until she can tolerate a diet. Na 134 today, recheck in AM. (6) Thrombocytopenia: Code(s): D69.6 - Thrombocytopenia, unspecified Status: Acute Assessment and Plan: Platelets 137 today. May be secondary to acute infection, baseline appears to be in 100s on review of old labs. Mild splenomegaly noted on imaging yesterday. Continue to monitor for now. (7) History of anemia: Code(s): Z86.2 - Personal history of diseases of the blood and blood-forming organs and certain disorders involving the immune mechanism Status: Acute Assessment and Plan: Most likely dilution from IV fluid rehydration. She does have a history of anemia with a hemoglobin level that is frequently around 10.0 on review of previous labs. H&H remains low but stable. No evidence of acute bleeding. Monitor CBC. (8) Hypertension: Qualifiers: Hypertension type: essential hypertension Qualified Code(s): I10 - Essential (primary) hypertension Code(s): I10 - Essential (primary) hypertension Status: Acute Assessment and Plan: Blood pressures reviewed and are stable. She notes she has a prescription for lisinopril 10 milligrams daily yet she has not taken it for approximately 1 week due to feeling poorly. Blood pressures are well controlled without it, will continue to hold lisinopril. Monitor BP. (9) Cardiac murmur: Code(s): R01.1 - Cardiac murmur, unspecified Status: Acute Assessment and Plan: Echocardiogram pending. Additional Plan Thank you for allowing to participate this patient's care. Will follow with you while she is here. Call for any questions. Subjective Date/time seen: 10/08/19 10:30 Interval history: Ms. Mccabe is a 38yo F admitted for PID. She reports her pelvic pain is persistent but somewhat improved this morning. She reports nausea without vomiting. She denies chest pain, shortness of breath, or calf tenderness. She rerports a large, hard BM this morning and is passing flatus. Review of Systems Review of Systems: Narrative: Twelve systems were reviewed with pertinent positives and negatives as per HPI. Exam Narrative: Exam Narrative: General: Female resting supine in bed in no acute distress. HEENT: Normocephalic, EOMI, oral mucosa tacky. Cardiovascular: Rate and rhythm are reg
[2019-10-08 14:00] VITALS: BP 125/68; PULSE 98; RESP 16; TEMP 37.1; O2SAT 100
[2019-10-08] MEDS: ACETAMINOPHEN 325 MG TABLET 650 MG PO (14:29)
[2019-10-08] MEDS: NEOMYCIN/POLYMYXIN/BACITRACIN OINTMENT PACKET 1 PACKET (16:48)
[2019-10-08] MEDS: HYDROMORPHONE HCL 1 MG/ML INJ IV PUSH (20:37)
[2019-10-08 22:00] VITALS: BP 139/77; PULSE 109; RESP 16; TEMP 36.7; O2SAT 100
[2019-10-09] MEDS: SODIUM CHLORIDE 0.9% IV 1,000 ML 75 ML IV CONT (03:15)
[2019-10-09 04:45] LABS: Hematocrit 28.6 % (37.0-47.0); Hemoglobin 9.9 g/dL (12.0-15.0); Mean Corpuscular HGB Conc 34.6 g/dl (32-36); Mean Corpuscular Volume 86.7 fl (80-100); Platelet Count Result 133 k/mm3 (150-375); Red Cell Distribution Width 11.4 % (11.5-14.5); White Blood Count 7.6 K/mm3 (4.5-10.0)
[2019-10-09 05:04] LABS: Blood Urea Nitrogen 6 mg/dL (7-17); Calcium 8.1 mg/dL (8.4-10.2); Carbon Dioxide 24 mmol/L (22-30); Chloride 104 mmol/L (98-107); Estimated CRCL calculation 155 ml/min; Estimated Glomerular Filt Rate > 60; Glucose 110 mg/dL (65-105); Magnesium 1.8 mg/dL (1.6-2.3); Phosphorus 2.1 mg/dL (2.5-4.5); Potassium 3.2 mmol/L (3.4-5.0); Sodium 132 mmol/L (137-145)
[2019-10-09 06:00] VITALS: BP 116/68; PULSE 81; RESP 16; TEMP 36.4; O2SAT 96
[2019-10-09] MEDS: POTASSIUM CHLORIDE 20 MEQ TABLET 40 MEQ PO (08:23)
[2019-10-09] MEDS: POTASSIUM PHOS/SODIUM PHOS 250 MG TABLET PO (08:23)
[2019-10-09] MEDS: BISACODYL 10 MG SUPPOSITORY RECTAL (08:31)
[2019-10-09] MEDS: MAGNESIUM OXIDE 200 MG TABLET PO (08:31)
--- NOTE | 2019-10-09 09:01 | PM.GYNPNOP ---
[employer] - A/P Assessment and plan (1) Acute pelvic inflammatory disease: Code(s): N73.0 - Acute parametritis and pelvic cellulitis Status: Acute Assessment and Plan: She is clinically improved. Will swith to oral antibiotics. If she tolerates advanced diet then anticipate discharge later today. The anemia is stable. She has a history of anemia. (2) Adynamic ileus: Code(s): K56.0 - Paralytic ileus Status: Acute Assessment and Plan: Resolved. Advancing diet. (3) Hypokalemia: Code(s): E87.6 - Hypokalemia Status: Acute Assessment and Plan: Continue Potassium replacement. Time Spent With Patient Time: Total time spent is greater than 50% in coordination of care (as documented) at patient's floor/unit and/or counseling patient: Time with patient: less than 15 minutes [employer]- PN:Subj Post-Op Subjective Date/time seen: 10/09/19 09:01 Interval history: She states that she feels better. Has had another small bowel movement. No nausea. Exam Const: General: cooperative and alert Resp: Effort & Inspection: normal respiratory effort Auscultation: clear to auscultation bilaterally Cardio: Rate: regular rate Rhythm: regular rhythm GI: Inspection: normal to inspection GI Palp: Yes abdominal tenderness (improved no guarding no rebound) Percussion: Yes normal to percussion Other: positive bowel sounds throughout Extrem: General: normal to inspection [employer] - PN: Obj Data Vital Signs Vital Signs: Vital Signs - 24 hr 10/08/19 14:00 10/08/19 22:00 10/09/19 06:00 Temperature 98.7 F 98.0 F 97.6 F Pulse Rate 98 109 H 81 Respiratory Rate 16 16 16 Blood Pressure 125/68 139/77 116/68 Pulse Oximetry 100 100 96 Intake/Output Intake/Output: Intake & Output 10/06/19 10/07/19 10/08/19 10/09/19 23:59 23:59 23:59 23:59 Intake Total 1505 2095 3190 600 Output Total 550 800 800 Balance 1505 1545 2390 -200 Meds/Results Medications: Active Medications Generic Name Dose Route Start Last Admin Trade Name Freq PRN Reason Stop Dose Admin Bisacodyl 10 mg 10/08/19 09:00 10/09/19 08:31 Dulcolax Suppository RECTAL 10 mg QAM BAUDILIO Administration Doxycycline Hyclate 100 mg 10/09/19 09:00 Vibramycin Tab PO Q12HR [facility] Hydromorphone HCl 1 mg 10/07/19 00:28 10/08/19 20:37 Dilaudid Inj IV PUSH 1 mg Q3H PRN Administration Pain Rated 7-10 Metronidazole 500 mg 10/09/19 09:00 Flagyl PO Q12HR BAUDILIO Ondansetron HCl 4 mg 10/06/19 16:30 10/07/19 19:41 Zofran Inj IV PUSH 4 mg Q4H PRN Administration Nausea Sodium Phosphate 250 mg 10/08/19 09:00 10/09/19 08:23 K-Phos Neutral PO 250 mg BID BAUDILIO Administration Radiology Results: ITS Impressions Abdomen/Pelvis CT 10/06/19 15:44 IMPRESSION: Distal small bowel enteritis versus possible adynamic ileus, possibly secondary to pelvic inflammatory disease Mild splenomegaly Small left renal cyst Nonspecific area of fluid attenuation in the anterior uterine wall and mild fluid in the lower uterine segment endometrial cavity Abdomen X-Ray 10/07/19 11:08 IMPRESSION: 1. Normal bowel gas pattern. Labs CBC & Chem 7: 10/09/19 04:34 10/09/19 04:34 Labs: Laboratory Results - last 24 hr 10/09/19 10/09/19 04:34 04:34 WBC 7.6 RBC 3.30 L Hgb 9.9 L Hct 28.6 L MCV 86.7 MCH 30.0 MCHC 34.6 RDW 11.4 L Plt Count 133 L MPV 10.0 Sodium 132 L Potassium 3.2 L Chloride 104 Carbon Dioxide 24 BUN 6 L Creatinine 0.40 L Estim Creat Clear Calc 155 Estimated GFR > 60 Glucose 110 H Calcium 8.1 L Phosphorus 2.1 L Magnesium 1.8 Quality VTE Prophylaxis VTE prophylaxis: mechanical ordered
--- NOTE | 2019-10-09 09:12 | P.PNIM_ITS ---
Progress Note: A&P Assessment and Plan (1) Acute pelvic inflammatory disease: Code(s): N73.0 - Acute parametritis and pelvic cellulitis Status: Acute Assessment and Plan: * Management per the primary service. Treated with IV ancef and doxycycline. * Discussed case with Dr Kinney; plans for transition to oral antibiotics and anticipates discharge later today if she can tolerate a bland diet. Thank you for allowing me to participate in this patient's care. She is medically stable for discharge from hospitalist standpoint. Recommendations: * Follow up with PCP in 1 to 2 weeks. PCP may consider monitoring with another echocardiogram in the future. * Continue a bowel regimen with Miralax, Dulcolax tabs and/or suppositories OTC. * Hold lisinopril at discharge until follow up with PCP. * BMP in 1 week to monitor sodium and potassium levels; results to PCP. (2) Sepsis: Qualifiers: Sepsis acute organ dysfunction status: unspecified Sepsis type: sepsis due to unspecified organism Qualified Code(s): A41.9 - Sepsis, unspecified organism Code(s): A41.9 - Sepsis, unspecified organism Status: Acute Assessment and Plan: * Evident by fever, tachycardia, and leukocytosis in the setting of acute pelvic inflammatory disease. * Blood cultures pending with no growth to date. Vital signs are stable today. (3) Adynamic ileus: Code(s): K56.0 - Paralytic ileus Status: Acute Assessment and Plan: * May be secondary to PID. Dr. Florez was consulted by the primary service. * Improving. Patient reports BM this morning. Continue bowel regimen at home. (4) Hypokalemia: Code(s): E87.6 - Hypokalemia Status: Acute Assessment and Plan: * K stable 3.2 and replaced. (5) Hyponatremia: Code(s): E87.1 - Hypo-osmolality and hyponatremia Status: Acute Assessment and Plan: * Rate of fluids decreased at 75mL/hr, continue these for now until she can tolerate a diet. * Na low but stable. (6) Thrombocytopenia: Code(s): D69.6 - Thrombocytopenia, unspecified Status: Acute Assessment and Plan: * Platelets 133 today. May be secondary to acute infection, baseline appears to be in 100s on review of old labs. Mild splenomegaly noted on imaging. * Follow up with PCP. (7) History of anemia: Code(s): Z86.2 - Personal history of diseases of the blood and blood-forming organs and certain disorders involving the immune mechanism Status: Chronic Assessment and Plan: * Most likely dilution from IV fluid rehydration. She does have a history of anemia with a hemoglobin level that is frequently around 10.0 on review of previous labs. * H&H remains low but stable. No evidence of acute bleeding. (8) Hypertension: Qualifiers: Hypertension type: essential hypertension Qualified Code(s): I10 - Essential (primary) hypertension Code(s): I10 - Essential (primary) hypertension Status: Acute Assessment and Plan: * Blood pressures reviewed and are stable. She notes she has a prescription for lisinopril 10 milligrams daily yet she has not taken it for approximately 1 week due to feeling poorly. * Blood pressures are well controlled without it, recommend that she can hold lisinopril at discharge until follow up with PCP. (9) Cardiac mur
--- NOTE | 2019-10-09 09:12 | PM.IMPN ---
Progress Note: A&P Assessment and Plan (1) Acute pelvic inflammatory disease: Code(s): N73.0 - Acute parametritis and pelvic cellulitis Status: Acute Assessment and Plan: Management per the primary service. Treated with IV ancef and doxycycline. Discussed case with Dr Kinney; plans for transition to oral antibiotics and anticipates discharge later today if she can tolerate a bland diet. Thank you for allowing me to participate in this patient's care. She is medically stable for discharge from hospitalist standpoint. Recommendations: Follow up with PCP in 1 to 2 weeks. PCP may consider monitoring with another echocardiogram in the future. Continue a bowel regimen with Miralax, Dulcolax tabs and/or suppositories OTC. Hold lisinopril at discharge until follow up with PCP. BMP in 1 week to monitor sodium and potassium levels; results to PCP. (2) Sepsis: Qualifiers: Sepsis acute organ dysfunction status: unspecified Sepsis type: sepsis due to unspecified organism Qualified Code(s): A41.9 - Sepsis, unspecified organism Code(s): A41.9 - Sepsis, unspecified organism Status: Acute Assessment and Plan: Evident by fever, tachycardia, and leukocytosis in the setting of acute pelvic inflammatory disease. Blood cultures pending with no growth to date. Vital signs are stable today. (3) Adynamic ileus: Code(s): K56.0 - Paralytic ileus Status: Acute Assessment and Plan: May be secondary to PID. Dr. Florez was consulted by the primary service. Improving. Patient reports BM this morning. Continue bowel regimen at home. (4) Hypokalemia: Code(s): E87.6 - Hypokalemia Status: Acute Assessment and Plan: K stable 3.2 and replaced. (5) Hyponatremia: Code(s): E87.1 - Hypo-osmolality and hyponatremia Status: Acute Assessment and Plan: Rate of fluids decreased at 75mL/hr, continue these for now until she can tolerate a diet. Na low but stable. (6) Thrombocytopenia: Code(s): D69.6 - Thrombocytopenia, unspecified Status: Acute Assessment and Plan: Platelets 133 today. May be secondary to acute infection, baseline appears to be in 100s on review of old labs. Mild splenomegaly noted on imaging. Follow up with PCP. (7) History of anemia: Code(s): Z86.2 - Personal history of diseases of the blood and blood-forming organs and certain disorders involving the immune mechanism Status: Chronic Assessment and Plan: Most likely dilution from IV fluid rehydration. She does have a history of anemia with a hemoglobin level that is frequently around 10.0 on review of previous labs. H&H remains low but stable. No evidence of acute bleeding. (8) Hypertension: Qualifiers: Hypertension type: essential hypertension Qualified Code(s): I10 - Essential (primary) hypertension Code(s): I10 - Essential (primary) hypertension Status: Acute Assessment and Plan: Blood pressures reviewed and are stable. She notes she has a prescription for lisinopril 10 milligrams daily yet she has not taken it for approximately 1 week due to feeling poorly. Blood pressures are well controlled without it, recommend that she can hold lisinopril at discharge until follow up with PCP. (9) Cardiac murmur: Code(s): R01.1 - Cardiac murmur, unspecified Status: Acute Assessment and Plan: Echocardiogram noted - trace mitral and tricuspid regurg; elevated R atrial pressure and mild pulmonary HTN. Follow up with PCP and may consider monitoring with repeat echocardiogram in the future. Subjective Date/time seen: 10/09/19 09:12 Interval hist
[2019-10-09] MEDS: DOXYCYCLINE HYCLATE 100 MG TABLET PO (09:26)
[2019-10-09] MEDS: metroNIDAZOLE 250 MG TABLET 500 MG PO (09:26)
--- NOTE | 2019-10-09 09:50 | P.PNGI_ITS ---
Progress Note: A&P Additional Plan Patient clinically improved today. She is tolerating liquids. Denies abdominal pain passing stool and flatus. Physical exam reveals Vital Signs to be stable. Lungs are clear. Abdomen is soft bowel sounds are present and active. No localized Tenderness. Impression 1. Resolved adynamic ileus. 2. Pelvic inflammatory disease. Plan is to advance diet discharge on broad-spectrum antibiotics per Gynecology Service. Subjective Date/time seen: 10/09/19 09:50 Objective Data Vital Signs Vital Signs: Vital Signs - 24 hr 10/08/19 14:00 10/08/19 22:00 10/09/19 06:00 Temperature 37.1 C 36.7 C 36.4 C Pulse Rate 98 109 H 81 Respiratory Rate 16 16 16 Blood Pressure 125/68 139/77 116/68 Pulse Oximetry 100 100 96 Intake/Output Intake/Output: Intake & Output 10/06/19 10/07/19 10/08/19 10/09/19 23:59 23:59 23:59 23:59 Intake Total 1505 2095 3190 1170 Output Total 550 800 800 Balance 1505 1545 2390 370 Meds/Results Medications: Active Medications Generic Name Dose Route Start Last Admin Trade Name Freq PRN Reason Stop Dose Admin Hydrocodone Bitart/Acetaminophen 1 tab 10/09/19 09:45 [place] 5-325 Mg PO Q4H PRN Pain Rated 4-6 Bisacodyl 10 mg 10/08/19 09:00 10/09/19 08:31 Dulcolax Suppository RECTAL 10 mg QAM BAUDILIO Administration Doxycycline Hyclate 100 mg 10/09/19 09:00 10/09/19 09:26 Vibramycin Tab PO 100 mg Q12HR BAUDILIO Administration Metronidazole 500 mg 10/09/19 09:00 10/09/19 09:26 Flagyl PO 500 mg Q12HR BAUDILIO Administration Ondansetron HCl 4 mg 10/06/19 16:30 10/07/19 19:41 Zofran Inj IV PUSH 4 mg Q4H PRN Administration Nausea Sodium Phosphate 250 mg 10/08/19 09:00 10/09/19 08:23 K-Phos Neutral PO 250 mg BID BAUDILIO Administration Radiology Results: ITS Impressions Abdomen/Pelvis CT 10/06/19 15:44 IMPRESSION: Distal small bowel enteritis versus possible adynamic ileus, possibly secondary to pelvic inflammatory disease Mild splenomegaly Small left renal cyst Nonspecific area of fluid attenuation in the anterior uterine wall and mild fluid in the lower uterine segment endometrial cavity Abdomen X-Ray 10/07/19 11:08 IMPRESSION: 1. Normal bowel gas pattern. Labs Labs: Laboratory Results - last 24 hr 10/09/19 10/09/19 04:34 04:34 WBC 7.6 RBC 3.30 L Hgb 9.9 L Hct 28.6 L MCV 86.7 MCH 30.0 MCHC 34.6 RDW 11.4 L Plt Count 133 L MPV 10.0 Sodium 132 L Potassium 3.2 L Chloride 104 Carbon Dioxide 24 BUN 6 L Creatinine 0.40 L Estim Creat Clear Calc 155 Estimated GFR > 60 Glucose 110 H Calcium 8.1 L Phosphorus 2.1 L Magnesium 1.8
[2019-10-09 14:00] VITALS: BP 149/78; PULSE 99; RESP 16; TEMP 36.8; O2SAT 100
--- NOTE | 2019-10-16 10:15 | PM.DS ---
DS: Diagnosis Admitting Diagnosis Admitting Diagnosis: Acute parametritis. Ileus DS: Summary Hospital Course Reason for hospitalization: Pelvic inflammatory disease. Hospital Course: Patient was admitted to the hospital from the emergency department due to pelvic pain secondary to pelvic inflammatory disease this was based on discharge seen by the emergency visit room physician and uterine and bilateral adnexal tenderness. Also had radiologic findings consistent with inflammation. She also had an ileus at that time she was nauseated. she was admitted for IV antibiotics. She also had additional imaging to monitor the Ivonne. She had a GI consultation due to the ileus and a history that was significant for what sounds like intermittent intestinal issues. She was placed on NPO. She refused the NG tube. Subsequent x-ray did show the ileus to improve. She was also constipated. She did have suppositories which did help her pain. And also she started having positive bowel sounds. She was advanced to ice chips and tolerated those well and her diet was slowly advanced to a bland diet. She was afebrile for 48 hours. Her clinical exam was improved from her admissions exam. After she tolerated the bland diet she was discharged to home with oral antibiotics. She was instructed to follow up in 1 week. She is instructed to take the antibiotics as prescribed. She is instructed to do MiraLax daily. Also instructed to continue a bland diet for several days and gradually increase it. Instructed to call or return if she has any vomiting. Or increasing nausea. She did have low potassium which was replaced when she was in the hospital. She also had a consult with the internists due to the electrolyte abnormalities. Status at Discharge Cognitive/behavioral status at discharge: Normal. Functional status at discharge: independent ambulation Time Spent with Patient Time attestation: Total time spent providing and/or coordinating discharge services: Time spent: Less than 30 minutes Exam Const: General: comfortable and no acute distress Limitations: no limitations Resp: Effort & Inspection: normal respiratory effort Cardio: Rate: regular rate GI: GI Palp: Yes Soft to palpation and Yes Tenderness to palpation present (GI) (decreased tenderness nor guarding no rebound) Auscultation: normal bowel sounds Extrem: Right upper extremity: no edema Psych: Appearance: grossly normal DS: Data Data Completed and Pending Completed studies during hospitalization: KUB Procedures/Treatments: IV antibiotics. IV hydration. Discharge Plan Discharge Attending physician on discharge: Abad Kinney Consulting providers: Tara Barroso ; Rina Garrison ; Blas Galvan ; Misbah Lopez V. ; Carol Menezes ; Jeremy Garcia ; Shawn Florez Discharging Clinician: Abad Kinney Anticipated Discharge Date/Time: 10/09/19 15:23 Patient Disposition: Home, Self-Care Activity: as tolerated and pelvic rest Diet: regular Discharge Instructions: May take over the counter Tylenol and Ibuprofen for pain. Take Miralax once a day. Take daily multivitamin with Iron. Hospitalist Discharge Instructions: Follow up with your primary care provider, Dr Zabala, in 1 to 2 weeks regarding your echocardiogram results. PCP may choose to reevaluate with another echocardiogram in the future. You can continue to use Miralax once daily, dulcolax tabs and/or dulcolax suppositories for constipation. These can all be purchased over the counter. If no bowel movement in 2 to 3 days, can take Miralax twice daily. Recommend that you hold off on taking the Lisinopril until you can follow up with Dr Zabala. You have not gotten any lisinopril here because your blood pressures were normal without it. Repeat blood work in 1 week to monitor electrolytes with results to Dr Zabala's office. Would be beneficial to get the blood work done before your follo
== END 2019-10-09 16:25 | disposition home or self-care (01) | DRG 531 ==
LOC: ANHED 16:22 → ANH2MED 21:25
PROVIDERS: Physician Assistant; Admitting Provider Obstetrics & Gynecology; Emergency Provider Emergency Medicine; PCP Family Medicine; Visit Provider Obstetrics & Gynecology
DX: N73.0 Acute parametritis and pelvic cellulitis (principal); K56.0 Paralytic ileus; E87.6 Hypokalemia; E87.1 Hypo-osmolality and hyponatremia; D69.6 Thrombocytopenia, unspecified; R01.1 Cardiac murmur, unspecified; I10 Essential (primary) hypertension; F90.9 Attention-deficit hyperactivity disorder, unspecified type; Z87.891 Personal history of nicotine dependence; Z86.2 Personal history of diseases of the blood and blood-forming organs and certain disorders involving the immune mechanism
CPT/HCPCS: 36415; 74018; 74177; 80048; 80053; 81001; 81025; 83605; 83690; 83735; 84100; 85025; 85027; 87040; 87070; 87491; 87591; 87808; 93306; 96361; 96365; 96366; 96367; 96368; 96375; 96376; 99285; A9270; G0378; G0379; J0131; J0690; J0692; J1170; J1885; J2405; J3475; J7030; J7120; Q9967

== ENCOUNTER 2019-10-31 07:53 | Outpatient (CLI) | payer OTHER, SELFPAY ==
--- NOTE | ~2019-10-31 | US_ITS ---
EXAMINATION: US pelvic complete w TV EXAM DATE: 10/31/2019 08:56 INDICATION: Pelvic pain, pressure. TECHNIQUE: Pelvic transabdominal and transvaginal sonogram was performed. There are multiple graysca le and Doppler images available for interpretation. Comparison is made to prior examination from 02/13. FINDINGS: Uterus measures 10.1 x 4.2 x 4.6 cm, and is morphologically normal. Endometrial stripe me asures 12 mm, within normal limits, with trace amount of endometrial fluid. There is no free pelvic fluid. Right adnexa: The ovary is not identified. There is no adnexal mass. Left adnexa: The ovary measures 4.6 x 2.6 x 2.1 cm and is morphologically normal, contains the domina nt physiologic follicle. Ovarian vascular flow confirmed. IMPRESSION: 1. Unremarkable pelvic ultrasound exam. Reviewed, dictated and finalized at location A.
--- NOTE | ~2019-10-31 | US_ITS ---
EXAMINATION: US venous doppler UE RT EXAM DATE: 10/31/2019 08:29 INDICATION: Right arm pain after IV. TECHNIQUE: Multiple grayscale, color flow, Doppler sonographic images of the right upper extremity ve ins obtained by technologist. Compression was performed where able. There is no prior study for hannah lord. FINDINGS: Right upper extremity: Jugular vein: ------------> Normal. Subclavian vein: --------> Normal. Axillary vein:------------> Normal. Brachial vein:-----------> Normal. Basilic vein: ------------> Normal. Cephalic vein: ----------> Normal. Radial vein: ------------> Normal. Ulnar vein: > Normal. IMPRESSION: No deep venous thrombosis of the right upper extremity. Reviewed, dictated and finalized at location A.
== END 2019-10-31 07:54 | disposition home or self-care (01) ==
LOC: ANHIMG 07:55
PROVIDERS: PCP Family Medicine; Visit Provider Obstetrics & Gynecology
DX: R10.2 Pelvic and perineal pain (principal)
CPT/HCPCS: 76830; 76856; 93971

== ENCOUNTER 2019-11-19 12:47 | Outpatient (CLI) | payer OTHER, SELFPAY ==
[2019-11-19 13:09] LABS: Basophils Percent Auto 0.5 % (0.2-1.2); Eosinophils Absolute Auto 0.1 K/mm3 (0-0.3); Eosinophils Percent Auto 2.2 % (0-4.4); Hematocrit 40.3 % (37.0-47.0); Hemoglobin 13.2 g/dL (12.0-15.0); Immature Granulocyte Absolute 0.01 K/mm3 (0.00-0.031); Immature Granulocyte Percent A 0.2 % (0-0.5); Lymphocytes Absolute Auto 1.78 K/mm3 (0.9-3.2); Lymphocytes Percent Auto 29.6 % (18.3-44.2); Mean Corpuscular HGB Conc 32.8 g/dl (32-36); Mean Corpuscular Hemoglobin 28.8 pg (26-34); Mean Corpuscular Volume 87.8 fl (80-100); Mean Platelet Volume 9.3 fl (7.4-10.4); Monocytes Absolute Auto 0.4 K/mm3 (0.1-0.6); Monocytes Percent Auto 6.7 % (2.6-8.5); Neutrophils Absolute Auto 3.7 K/mm3 (1.3-6.7); Neutrophils Percent Auto 60.8 % (45.5-73.1); Platelet Count Result 269 k/mm3 (150-375); Red Blood Count 4.59 M/mm3 (4.2-5.4); Red Cell Distribution Width 12.7 % (11.5-14.5)
[2019-11-19 13:24] LABS: Blood Urea Nitrogen 20 mg/dL (7-17); Calcium 9.3 mg/dL (8.4-10.2); Carbon Dioxide 27 mmol/L (22-30); Chloride 101 mmol/L (98-107); Estimated Glomerular Filt Rate > 60; Glucose 101 mg/dL (65-105); Potassium 4.3 mmol/L (3.4-5.0); Sodium 135 mmol/L (137-145)
== END 2019-11-19 12:48 | disposition home or self-care (01) ==
PROVIDERS: Obstetrics & Gynecology; PCP Family Medicine; Visit Provider Physician Assistant
DX: Z01.818 Encounter for other preprocedural examination (principal); E87.6 Hypokalemia
CPT/HCPCS: 36415; 80048; 85025

== ENCOUNTER 2019-12-07 05:35 | Outpatient (CLI) | payer OTHER, SELFPAY ==
[2019-12-07 15:31] LABS: SARS-CoV-2 RNA PCR Negative
== END 2019-12-07 05:36 | disposition home or self-care (01) ==
LOC: ANHCOVIDDT 05:35
PROVIDERS: PCP Family Medicine; Visit Provider Obstetrics & Gynecology
DX: Z01.818 Encounter for other preprocedural examination (principal); Z11.59 Encounter for screening for other viral diseases
CPT/HCPCS: 87635; U0003

== ENCOUNTER 2019-12-10 15:50 | Observation (INO) | payer OTHER, SELFPAY ==
[2019-12-04 11:26] VITALS: BMI 20.7
[2019-12-09] VITALS (16 sets, daily range): BP systolic 82–128; BP diastolic 39–91; PULSE 80–94; RESP 12–18; TEMP 36.3–37; O2SAT 94–100
--- NOTE | 2019-12-09 06:24 | PM.IMHP ---
H&P: HPI History of Present Illness Chief complaint: pelvic pain Narrative: Shoshana Mccabe is a 39 year old Para 4 female with a long history of chronic pelvic pain which has been increasing over the past year. She has a remote history of endometriosis. She had pelvic inflammatory disease a year ago after having a retained tampon. Since then she has intermittent flare ups of the pelvic pain consistent with chronic pelvic inflammatory disease where she has had to get oral or IV antibiotics. In the past when she was having cyclic pain she has been offered [place], Depo-Proera, DepoLupron, in addition to oral contraceptives as a possible management of her pain and has declined. Her cultures have been negative for infection. Recent ultrasound was normal. She desires definitive treatment of the chronic pelvic pain. Declines all other medical options. She has a history of colitis at time of the PID exacerbation. States the pain is worse on the left lower side. Review of Systems Review of Systems: All systems reviewed & are unremarkable except as noted in HPI and below Constitutional: Constitutional: Reports no additional constitutional complaints Eyes: Eyes: Reports no additional eye complaints ENT: Reports Normal hearing present Cardiovascular: Cardiovascular: Denies chest pain and Denies dyspnea Respiratory: Respiratory: Reports no additional respiratory complaints, Reports cough, Denies dyspnea and Reports other Gastrointestinal: Gastrointestinal: Reports as per HPI and Reports abdominal pain Genitourinary: Genitourinary: Reports no additional female genitourinary complaints and Reports as per HPI Neurologic: Reports Normal hearing present Psychiatric: Psychiatric: Reports no additional psychiatric complaints Endocrine: Endocrine: Reports no additional endocrine complaints Hematologic/Lymphatic: Hematologic/Lymphatic: Reports no additional hematologic/lymphatic complaints [facility] Past Medical History Medical History ADHD Chronic pelvic pain in female Colitis History of colitis in her early 20s. 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 Pelvic inflammatory disease In December 2018 secondary to retained tampon. Thrombophlebitis Surgical History Surgical History History of appendectomy History of X4. History of elbow surgery Left. History of placement of ear tubes History of tonsillectomy Status post excision of lipoma From the back in November 2018, complicated by seroma and subsequent abscess and infection. Family History Family History Grandparent Diabetes mellitus, Onset Age: 198 Family history of malignant neoplasm of stomach, Onset Age: 199 Family history of lupus erythematosus, Onset Age: 200 Family history of malignant neoplasm of uterus Family history of malignant neoplasm of ovary Mother Hypertension Family history of elevated blood lipids Cerebrovascular accident Sibling Hypertension Other Family history of malignant neoplasm of breast Social History Social History Social History: Designates her mother, Latesha Mccabe, as her surrogate decision maker. Code status: Full code. Smoking packs per day: 1 Smoking cigarettes per day: 20.0 Years smoked: 1 Smoking pack-years: 1.00 Smoking status: Former smoker Tobacco type: cigarettes Second hand tobacco smoke exposure: Yes Smoking end date: 07/29/09 Alcohol intake: current Drinks per week: 2 Substance use: never Substance use type: does not use Additional living arrangements comments: [facility]. Additional occupation/education c
[2019-12-09] MEDS: LACTATED RINGERS 1,000 ML 30 ML IV CONT ×2 (06:25→11:49)
--- NOTE | 2019-12-09 06:58 | WPDANESEPPF ---
Anes - Initial Pre Proc Eval Procedure: Operation Date: 12/09/19 07:30 Proposed Procedures p Total Abdominal Hysterectomy, Bilateral Salpingectomy - Abad Kinney MD Date/Time: 12/09/19 06:58 Surgeon: Abad Kinney MD Pre Op Diagnosis: pelvic pain Patient Data Age: 39 Gender: F Height: 5 ft 8 in Weight: 65.6 kg Last Vital Signs Temp 36.7 C 12/09/19 06:02 Pulse 88 12/09/19 06:02 Resp 16 12/09/19 06:02 BP 128/73 12/09/19 06:02 Pulse Ox 100 12/09/19 06:02 Allergies Allergy/AdvReac Type Severity Reaction Status Date / Time morphine Allergy Unknown Hives Verified 12/04/19 11:29 prednisone Allergy Unknown swelling Verified 12/04/19 11:29 SURGICAL GLUE Allergy SEVERE Uncoded 12/04/19 11:29 Rash, SWELLING Home Medications Medication Instructions Recorded Confirmed Type dextroamphetamine-amphetamine 30 10 mg PO BID 08/07/19 12/09/19 History mg tablet lisinopril 10 mg PO DAILY 10/06/19 12/09/19 History L.acid-L.casei-B.bif-B.carlos-FOS 1 cap PO DAILY 12/04/19 12/09/19 History [Probiotic Blend] escitalopram oxalate [Lexapro] 5 mg PO DAILY 12/04/19 12/09/19 History multivitamin 1 tablet PO DAILY 12/04/19 12/09/19 History Patient hx anesthesia problems: none Family hx anesthesia problems: none PMFSH Past Medical History Medical History ADHD Chronic pelvic pain in female Colitis History of colitis in her early 20s. 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 Pelvic inflammatory disease In December 2018 secondary to retained tampon. Thrombophlebitis Surgical History Surgical History History of appendectomy History of X4. History of elbow surgery Left. History of placement of ear tubes History of tonsillectomy Status post excision of lipoma From the back in November 2018, complicated by seroma and subsequent abscess and infection. Family History Family History Grandparent Diabetes mellitus, Onset Age: 198 Family history of malignant neoplasm of stomach, Onset Age: 199 Family history of lupus erythematosus, Onset Age: 200 Family history of malignant neoplasm of uterus Family history of malignant neoplasm of ovary Mother Hypertension Family history of elevated blood lipids Cerebrovascular accident Sibling Hypertension Other Family history of malignant neoplasm of breast Social History Social History Social History: Designates her mother, Latesha Mccabe, as her surrogate decision maker. Code status: Full code. Smoking packs per day: 1 Smoking cigarettes per day: 20.0 Years smoked: 1 Smoking pack-years: 1.00 Smoking status: Former smoker Tobacco type: cigarettes Second hand tobacco smoke exposure: Yes Smoking end date: 07/29/09 Alcohol intake: current Drinks per week: 2 Substance use: never Substance use type: does not use Additional living arrangements comments: [facility]. 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 Gender identity (if verbalized by the patient): Female Spiritual care concerns: No (noeitian) Agree to blood products: Yes Anes - Eval Final PreProcedure Day of Procedure 12/09/19 06:58 Patient weight: normal Heart: regular rate and rhythm Lungs: clear to auscultation Airway: Mallampati scale Neurological: alert and oriented Last oral intake: >/= 8 hours ASA classification: II Emergent: no Anesthetic plan: proceed Anesthesia type and monitoring: general ETT and standard monitoring Informed Consent: The patient's anesthetic plan and its attendant risks and benefit
[2019-12-09] MEDS: ceFAZolin 2 GM/D5W 50 ML 2 GM/50 ML BAG IVPB (07:25)
[2019-12-09] MEDS: METHYLENE BLUE 0.5% INJ 10 ML AMPULE 5 ML IRRIGATION (10:14)
--- NOTE | 2019-12-09 13:17 | SUR.PHASEI ---
1311: Patient given 25mcg of Fentanyl when arrived to room 289. RN unable to chart in SEP d/t being discontinued.
--- NOTE | 2019-12-09 13:45 | PC.NURSE ---
This patient, Shoshana Mccabe, was admitted to room #289 via bed. Patient oriented to hospital policies and general routines including ID bracelet, bed and alarms, visiting hours, pain management, procedures, bathroom and other care routines, personal items, smoking policy, room service/diet, and visiting hours. Valuables list has been completed. Information on how to activate the Rapid Response Team has been discussed. Patient is encouraged to report perceived risks to care and to ask questions if they do not understand what they are told or what they should do.
--- NOTE | 2019-12-09 14:13 | PM.PROC ---
Procedure Note - Detailed Date of procedure: 12/09/19 Pre-op diagnosis: total abdominal hysterectomy 1. History of endometriosis. 2. History of chronic pelvic inflammatory disease. Post-op diagnosis: other (Severe pelvic adhesive disease) Procedure performed: 1. Total Abdominal hysterectomy 2. Blateral salpingectomy 3. Lysis of adhesions extensive 4. Cystoscopy Description of procedure: After informed consent was obtained patient was taken to the operating room and general endotracheal anesthesia was administered. She was placed in supine position. An exam under anesthesia was performed, the uterus was palpated to be normal size in palpated to be fixed to the lower abdomen. She was prepped and draped in sterile fashion attention was turned to the abdomen and a Pfannenstiel skin incision was made along her prior Pfannenstiel scar with a scalpel. The subcutaneous tissue was then incised with the scalpel and also the underlying scar tissue was incised with the scalpel and the Bovie on cut. Hemostasis of the area obtained with cautery. There were extensive adhesions of the fascia the fascia to the rectus muscles. The fascia was then dissected laterally with Hylton scissors on both sides. Extensive adhesions of the abdominal muscles to the fascia were lysed. This was done superiorly and inferiorly using Metzenbaum scissors and the Bovie. The midline was identified. The midline was entered after the area that was noted to be free of any tissue was incised. Below this point there was noted to be the uterus was severely adhesed to the anterior peritoneal wall. Superior to this there were no adhesions palpated. The adhesions of the right abdominal wall to the adnexa and the fascia was lysed until the right sidewall could be visualized. There were adhesions on the left side of the abdomen from the rectus muscles to the fascia. The adhesions were dissected and the intestines were packed out of the pelvis and a Loraine retractor was used to retract the abdominal muscles. The lower abdominal muscle was not retracted due to the scarring to the left side of the uterus. Attention was then turned to the right round ligament. After scar tissue was removed the round ligament of the right side was visualized was grasped with a Sinton and ligated with 0 Vicryl. The round ligament was then incised and the anterior leaf of the broad ligament was further dissected anteriorly to the area where the vesicouterine peritoneum was noted to be adhesed to the mid uterine body. Attention was then turned to the left fallopian tube which surrounding adhesions were lysed to free up the fallopian tube from the ovary. The dense adhesions of the bladder and scar tissue was dissected from the right and left side of the uterine body. At this time the bladder was backfilled with methylene blue to aid with the dissection. After the scar tissue was lysed and the vesicouterine peritoneum was dissected on the right side off of the lower uterine segment. The right uterine vessels were then skeletonized and the right uterine artery was cauterized with the LigaSure. Attention was then turned to the left side. While palpation of the scar tissue where the abdominal muscles were scarred to the uterus laterally there was noted to be a cyst encased in the scar tissue it was possibly a paratubal cyst this was excised from the sidewall adhesions with the abdominal muscles. This will be sent with the specimen. The left fallopian tube was noted to be dilated. The left fallopian tube also had some adhesions to the left ovary. The left fallopian tube was cauterized from the broad ligament with the LigaSure. The posterior leaf of the broad ligament was dissected. The scar tissue of the muscle to the uterine body was cauterized using the LigaSure while also dissecting the scar tissue from the uterus the scar tissue was then dissected to where could feel the lower parametrial tissue. The rest of the scarred vesicouterin
[2019-12-09] MEDS: DEXTROSE 5%/0.45% SOD CHL 1,000 ML 125 ML IV CONT ×2 (14:18→22:56)
[2019-12-10 03:50] VITALS: BP 115/74; PULSE 89; RESP 16; TEMP 36.9
[2019-12-10] MEDS: ONDANSETRON INJ 4 MG/2 ML VIAL IV PUSH ×2 (04:00→13:51)
[2019-12-10 08:15] VITALS: BP 116/68; PULSE 80; RESP 16; TEMP 36.9; O2SAT 100
--- NOTE | 2019-12-10 08:25 | PM.GYNPNOP ---
APPAREL CUTTER - A/P Assessment and plan (1) Status post hysterectomy: Code(s): Z90.710 - Acquired absence of both cervix and uterus Status: Acute Assessment and Plan: Discussed her surgery with her. Will check CBC, if platelets WNL then will give her Toradol which I anticipate will help her pain better. Once better pain control, will DC Quin[place] and assist with chair and ambulation. Postoperative Procedures: Procedures Operation Date: 12/09/19 07:30 Actual Procedures Side Surgeon p Total Abdominal Hysterectomy, Bilateral Salpingectomy, cystoscopy Abad Kinney MD Time Spent With Patient Time: Total time spent is greater than 50% in coordination of care (as documented) at patient's floor/unit and/or counseling patient: Time with patient: less than 15 minutes APPAREL CUTTER- PN:Subj Post-Op Subjective Date/time seen: 12/10/19 08:25 She does not have good pain control. No emesis, occasional mild nausea. 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 No leg pain. Review of Systems Review of Systems: All systems reviewed & are unremarkable except as noted in HPI and below Cardiovascular: Cardiovascular: Reports no additional cardiovascular complaints Respiratory: Respiratory: Reports no additional respiratory complaints Gastrointestinal: Gastrointestinal: Reports belching, Denies nausea and Denies vomiting Genitourinary: Genitourinary: Reports no additional female genitourinary complaints Musculoskeletal: Musculoskeletal: Reports no additional musculoskeletal complaints Exam Const: Orientation/consciousness: oriented to person, oriented to place and oriented to time Resp: Auscultation: clear to auscultation bilaterally Cardio: Rate: regular rate Rhythm: regular rhythm GI: Inspection: normal to inspection Other: hypoactive bowel sounds, dressing clean, appropriate tender, nondistended Neuro: General: oriented to person, oriented to place and oriented to time Extrem: General: no calf tenderness Psych: Mental Status: mental status grossly normal APPAREL CUTTER - PN: Obj Data Vital Signs Vital Signs: Vital Signs - 24 hr 12/09/19 11:48 12/09/19 12:00 12/09/19 12:15 Temperature 97.4 F L Pulse Rate 90 80 82 Respiratory Rate 16 16 12 Blood Pressure 110/91 H 86/43 L 100/51 L Pulse Oximetry 94 100 100 12/09/19 12:30 12/09/19 12:45 12/09/19 13:00 Temperature Pulse Rate 91 89 89 Respiratory Rate 12 12 12 Blood Pressure 107/51 L 99/52 L 99/48 L Pulse Oximetry 98 97 97 12/09/19 13:15 12/09/19 13:30 12/09/19 14:00 Temperature 97.6 F Pulse Rate 84 85 90 Respiratory Rate 16 16 16 Blood Pressure 82/44 L 91/39 L 91/52 L Pulse Oximetry 98 99 99 12/09/19 14:30 12/09/19 15:00 12/09/19 16:00 Temperature 98.1 F Pulse Rate 91 88 89 Respiratory Rate 16 16 16 Blood Pressure 98/53 L 99/52 L 101/58 L Pulse Oximetry 96 98 98 12/09/19 17:34 12/09/19 19:44 12/09/19 23:00 Temperature 98.6 F 98.2 F Pulse Rate 94 88 85 Respiratory Rate 18 16 16 Blood Pressure 91/47 L 117/58 L 121/62 Pulse Oximetry 98 12/10/19 03:50 Temperature 98.5 F Pulse Rate 89 Respiratory Rate 16 Blood Pressure 115/74 Pulse Oximetry Intake/Output Intake/Output: Intake & Output 12/07/19 12/08/19 12/09/19 12/10/19 23:59 23:59 23:59 23:59 Intake Total 2110 578 Output Total 410 900 Balance 1700 -322 Meds/Results Medications: Active Medications Generic Name Dose Route Start Last Admin Trade Name Freq PRN Reason Stop Dose Admin Dextrose/Sodium Chloride 1,000 mls @ 125 mls/hr 12/09/19 12:10 12/09/19 22:56 Dextrose 5% Sodium Chloride 0.45% IV CONT 125 mls/hr .Q8H BAUDILIO Administration Fentanyl Citrate 600 mcg in 30 mls @ 0 mls/hr 12/09/19 13:17 12/10/19 06:04 Fentanyl 20 Mcg/Ml System Consultant IV CONT 0 mls/hr .Q0M PRN Titration PAIL BAILER Management Protocol Acetaminophen 1,000 mg in 100 mls @ 400 mls/hr 12/09/19 18:00 12/10/19 06:18 Ofirmev 1,000 Mg Ivpb IVPB 12/10/19 18:01 Infused Q6HR BAUDILIO
[2019-12-10] MEDS: DEXTROSE 5%/0.45% SOD CHL 1,000 ML 125 ML IV CONT ×2 (08:32→17:00)
[2019-12-10 08:57] LABS: Hematocrit 32.9 % (37.0-47.0); Mean Corpuscular HGB Conc 33.4 g/dl (32-36); Mean Corpuscular Hemoglobin 29.6 pg (26-34); Mean Corpuscular Volume 88.4 fl (80-100); Mean Platelet Volume 9.9 fl (7.4-10.4); Platelet Count Result 179 k/mm3 (150-375); Red Blood Count 3.72 M/mm3 (4.2-5.4); Red Cell Distribution Width 12.8 % (11.5-14.5); White Blood Count 11.5 K/mm3 (4.5-10.0)
[2019-12-10] MEDS: KETOROLAC 30 MG/ML VIAL (*BKC) (09:37)
--- NOTE | 2019-12-10 12:34 | WPDANESPN ---
Anes - Prog Note Post-Op Date/Time: 12/10/19 12:34 Cardiovascular status: normal Respiratory status: normal Airway patency: baseline Mental status: baseline Post-Op hydration status: normal Vital Signs: Last Vital Signs Temp 36.9 C 12/10/19 08:15 Pulse 80 12/10/19 08:15 Resp 16 12/10/19 08:15 BP 116/68 12/10/19 08:15 Pulse Ox 100 12/10/19 08:15 I/O: Intake & Output 12/09/19 12/10/19 12/10/19 23:59 07:59 15:59 Intake Total 1160 1678 12 Output Total 250 1325 Balance 910 353 12 Laboratory Tests 12/10/19 08:50 12/10/19 08:50 WBC 11.5 H RBC 3.72 L Hgb 11.0 L Hct 32.9 L MCV 88.4 MCH 29.6 MCHC 33.4 RDW 12.8 Plt Count 179 MPV 9.9 Post-procedural complaints: none Patient Feedback: Patient satisfied with anesthetic care.
[2019-12-10] MEDS: KETOROLAC 30 MG/ML VIAL (*BKC) IV PUSH ×2 (15:23→23:15)
[2019-12-10 15:30] VITALS: BP 103/62; PULSE 81; RESP 20; TEMP 37.6
[2019-12-10 19:30] VITALS: BP 112/68; PULSE 92; RESP 16; TEMP 36.8
[2019-12-10] MEDS: SIMETHICONE 80 MG TAB.CHEW PO ×3 (19:30→23:15)
[2019-12-11] MEDS: SIMETHICONE 80 MG TAB.CHEW PO ×5 (05:30→19:08)
[2019-12-11] MEDS: KETOROLAC 30 MG/ML VIAL (*BKC) IV PUSH ×3 (05:30→19:08)
[2019-12-11 08:40] VITALS: BP 100/58; PULSE 82; RESP 18; TEMP 37.4; O2SAT 98
--- NOTE | 2019-12-11 13:47 | PM.GYNPNOP ---
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 Continue oral pain meds. 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 She has not had regular. Mild nausea. No emesis. Started to ambulate. Oral pain meds better then IV. Exam Const: General: comfortable and no acute distress Orientation/consciousness: oriented to person, oriented to place and oriented to time Resp: Auscultation: clear to auscultation bilaterally Cardio: Rate: regular rate Rhythm: regular rhythm GI: Inspection: normal to inspection GI Palp: Yes abdominal tenderness (appropriate post op tenderness, non distended no guarding or rebound) Auscultation: Hypoactive bowel sounds present Other: statples intact no drainage Neuro: General: oriented to person, oriented to place and oriented to time Extrem: General: no calf tenderness Psych: Mental Status: mental status grossly normal 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 AND FILLER ASSEMBLER - PN: Obj Data Vital Signs Vital Signs: Vital Signs - 24 hr 12/10/19 15:30 12/10/19 19:30 12/11/19 08:40 Temperature 99.6 F 98.2 F 99.4 F Pulse Rate 81 92 82 Respiratory Rate 20 16 18 Blood Pressure 103/62 112/68 100/58 L Pulse Oximetry 98 Intake/Output Intake/Output: Intake & Output 12/08/19 12/09/19 12/10/19 12/11/19 23:59 23:59 23:59 23:59 Intake Total 2110 2840 1203 Output Total 410 3075 200 Balance 1700 -235 1003 Meds/Results Medications: Active Medications Generic Name Dose Route Start Last Admin Trade Name Freq PRN Reason Stop Dose Admin Hydrocodone Bitart/Acetaminophen 1 tab 12/10/19 09:24 [place] 10-325 Mg PO Q4H PRN Pain Rated 7-10 Hydrocodone Bitart/Acetaminophen 1 tab 12/10/19 09:24 12/11/19 12:33 [place] 5-325 Mg PO 1 tab Q4H PRN Administration Pain Rated 4-6 Ketorolac Tromethamine 30 mg 12/10/19 15:00 12/11/19 12:32 Toradol Inj IV PUSH 30 mg Q6H BAUDILIO Administration Ondansetron HCl 4 mg 12/09/19 12:02 12/10/19 13:51 Zofran Inj IV PUSH 4 mg Q6H PRN Administration Nausea Simethicone 80 mg 12/10/19 19:14 12/11/19 12:33 Mylicon PO 80 mg Q2HR PRN Administration Gas Discomfort Labs CBC & Chem 7: 12/10/19 08:50
[2019-12-11 19:23] VITALS: BP 119/73; PULSE 83; RESP 16; TEMP 36.9; O2SAT 100
[2019-12-12] MEDS: KETOROLAC 30 MG/ML VIAL (*BKC) IV PUSH ×2 (00:52→07:06)
[2019-12-12 07:07] VITALS: BP 111/72; PULSE 83; RESP 16; TEMP 37.1; O2SAT 98
[2019-12-12] MEDS: SIMETHICONE 80 MG TAB.CHEW PO ×2 (07:07→11:17)
--- NOTE | 2019-12-12 09:14 | PM.GYNPNOP ---
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 Assessment and plan (1) Status post hysterectomy: Code(s): Z90.710 - Acquired absence of both cervix and uterus Status: Acute Assessment and Plan: POD#3 doing well discharge home in stable condition emergency precautions reviewed f/u in office within 1 week for staple removal and postoperative wound check all questions and concerns addressed Postoperative Procedures: Procedures Operation Date: 12/09/19 07:30 Actual Procedures Side Surgeon p Total Abdominal Hysterectomy, Bilateral Salpingectomy, cystoscopy Abad Kinney MD Time Spent With Patient Time: Total time spent is greater than 50% in coordination of care (as documented) at patient's floor/unit and/or counseling patient: Time with patient: less than 15 minutes PRESS CATCHER- PN:Subj Post-Op Subjective Date/time seen: 12/12/19 09:14 Patient doing well this AM. Pain well controlled with medication. Denies any N/V. Tolerating PO diet. Ambulating without difficulty. Voiding well. + flatus. No BM. Review of Systems Review of Systems: All systems reviewed & are unremarkable except as noted in HPI and below Constitutional: Constitutional: Reports as per HPI, Reports no additional constitutional complaints and Denies headache(s) Cardiovascular: Cardiovascular: Reports as per HPI, Reports no additional cardiovascular complaints and Denies chest pain Respiratory: Respiratory: Reports as per HPI, Reports no additional respiratory complaints and Denies dyspnea Gastrointestinal: Gastrointestinal: Reports as per HPI, Reports no additional gastrointestinal complaints, Denies abdominal pain, Denies nausea and Denies vomiting Genitourinary: Genitourinary: Reports no additional female genitourinary complaints, Reports as per HPI and Denies dysuria Musculoskeletal: Musculoskeletal: Reports no additional musculoskeletal complaints and Reports as per HPI Exam Const: General: comfortable and no acute distress Resp: Auscultation: clear to auscultation bilaterally Cardio: Rate: regular rate Rhythm: regular rhythm GI: Inspection: non-distended GI Palp: Yes Soft to palpation, No Tenderness to palpation present (GI) and No Guarding due to palpation present (GI) Auscultation: normal bowel sounds Other: inc c/d/i, sharda in place Extrem: Right lower extremity: no edema Left lower extremity: no edema Other: no calf tenderness Psych: Mental Status: mental status grossly normal PRESS CATCHER - PN: Obj Data Vital Signs Vital Signs: Vital Signs - 24 hr 12/11/19 19:23 Temperature 36.9 C Pulse Rate 83 Respiratory Rate 16 Blood Pressure 119/73 Pulse Oximetry 100 Intake/Output Intake/Output: Intake & Output 12/09/19 12/10/19 12/11/19 12/12/19 23:59 23:59 23:59 23:59 Intake Total 2110 2840 1203 Output Total 410 3075 200 Balance 1700 -235 1003 Meds/Results Medications: Active Medications Generic Name Dose Route Start Last Admin Trade Name Freq PRN Reason Stop Dose Admin Hydrocodone Bitart/Acetaminophen 1 tab 12/10/19 09:24 12/12/19 07:06 [place] 10-325 Mg PO 1 tab Q4H PRN Administration Pain Rated 7-10 Hydrocodone Bitart/Acetaminophen 1 tab 12/10/19 09:24 12/11/19 16:52 [place] 5-325 Mg PO 1 tab Q4H PRN Administration Pain Rated 4-6 Ketorolac Tromethamine 30 mg 12/11/19 18:00 12/12/19 07:06 Toradol Inj IV PUSH 30 mg Q6H BAUDILIO Administration Ondansetron HCl 4 mg 12/09/19 12:02 12/10/19 13:51 Zofran Inj IV PUSH 4 mg Q6H PRN Administration Nausea Simethicone 80 mg 12/10/19 19:14 12/12/19 07:07 Mylicon PO 80 mg Q2HR PRN Administration Gas Discomfort Labs CBC & Chem 7: 12/10/19 08:50
--- NOTE | 2019-12-12 09:27 | PM.DS ---
DS: Diagnosis Admitting Diagnosis Admitting Diagnosis: Pelvic pain DS: Summary Time Spent with Patient Time attestation: Total time spent providing and/or coordinating discharge services: DS: Data Data Completed and Pending Completed studies during hospitalization: Pending at discharge 12/09/19 10:21 Surgical [PTH] Routine Discharge Plan Discharge Attending physician on discharge: Lo Baron Discharging Clinician: Lo Baron Anticipated Discharge Date/Time: 12/12/19 09:28 Patient Disposition: Home, Self-Care Activity: may drive after 2 weeks, as tolerated and pelvic rest Diet: as tolerated and regular Discharge Instructions: Call office ([phone]) to schedule the following appointments: 1. Postoperative/wound check and staple removal in 1 week. I have sent a prescription for Toradol and for a stronger pain medication, [place], to your pharmacy. You may take these medications as prescribed for pain. After completion of Toradol, you may take Ibuprofen 600mg every 6 hours as needed for pain. No driving for at least two weeks. You also may not drive while taking narcotics. Pain medication may make you constipated. It may be helpful to take an [id number] stool softener, such as Colace and/or Senokot, along with the pain medication to help lessen constipation. Call office or go to ED for pain not controlled with medication, headache, chest pain, shortness of breath, fever, chills, persistent nausea or vomiting, severe abdominal pain, heavy vaginal bleeding >2 pads/hour, foul vaginal discharge or odor, any redness near incision, severe pain, pus or drainage from incision site, or problems with your breasts. Patient Instructions: Antibiotic Form Stand Alone Forms: General Discharge Information Follow-up/Referrals: Abad Kinney MD [Physician] - Discharge Medications: New hydrocodone-acetaminophen [[place]] 5-325 mg tablet 1 - 2 tablet PO Q4-6H PRN (Reason: pain) Qty: 30 RF: 0 ketorolac 10 mg tablet 10 mg PO Q6H 3 Days Qty: 12 RF: 0 Continued dextroamphetamine-amphetamine [Adderall] 30 mg tablet 10 mg PO BID RF: 0 lisinopril 10 mg tablet 10 mg PO DAILY RF: 0 Hold Instructions: Hold until follow up with Dr Zabala. escitalopram oxalate [Lexapro] 5 mg Tablet 5 mg PO DAILY RF: 0 Probiotic Blend 2 billion cell-50 mg Capsule 1 cap PO DAILY RF: 0 multivitamin Tablet 1 tablet PO DAILY RF: 0 Other Ambulatory Orders: Type and Screen 14 Day (Routine) Timeframe: 3 Months Location: Determined by Patient Ordered By: Abad Kinney Date of admission: 12/10/19 15:50 Primary Care Provider: Ananda Zabala Admitting Provider: Abad Kinney Attending physician on admission: Abad Kinney Condition: Stable
== END 2019-12-12 12:10 | disposition home or self-care (01) ==
LOC: ANHSURGERY 15:54 → ANHOB2 12-11 10:14
PROVIDERS: Admitting Provider Obstetrics & Gynecology; PCP Family Medicine; Visit Provider Student in an Organized Health Care Education/Training Program
PROC: 0UT94ZZ Resection of Uterus, Percutaneous Endoscopic Approach (ICD-10-PCS; CPT 58150; principal; 2019-12-09 07:30)
DX: N80.0 Endometriosis of uterus (principal); N80.2 Endometriosis of fallopian tube; N94.89 Other specified conditions associated with female genital organs and menstrual cycle; N73.6 Female pelvic peritoneal adhesions (postinfective); G89.29 Other chronic pain; Z87.891 Personal history of nicotine dependence
CPT/HCPCS: 58150; 36415; 85027; 86850; 86900; 86901; 88307; 99199; A9270; G0378; G0379; J0131; J0690; J1170; J1200; J1885; J2250; J2370; J2405; J2704; J2710; J3010; J7030; J7120; Q9968

== ENCOUNTER 2020-05-10 00:36 | Outpatient (CLI) | payer OTHER, SELFPAY ==
[2020-05-10 19:00] LABS: SARS-CoV-2 RNA PCR Negative
== END 2020-05-10 00:37 | disposition home or self-care (01) ==
LOC: ANHCOVIDDT 00:37
PROVIDERS: PCP Family Medicine; Visit Provider Surgery
DX: Z01.812 Encounter for preprocedural laboratory examination (principal); Z20.828 Contact with and (suspected) exposure to other viral communicable diseases
CPT/HCPCS: 87635; C9803; U0003

== ENCOUNTER 2020-05-12 01:06 | Day surgery (SDC) | payer OTHER, SELFPAY ==
[2020-05-05 09:28] VITALS: BMI 21.2
[2020-05-12] VITALS (8 sets, daily range): BP systolic 107–135; BP diastolic 59–90; PULSE 75–81; RESP 12–16; TEMP 36.8; O2SAT 97–100
--- NOTE | 2020-05-12 07:23 | WPDANESEPPF ---
Anes - Initial Pre Proc Eval Procedure: Operation Date: 05/12/20 09:00 Proposed Procedures p Excisional Biopsy Right Lower Extremity Mass - Nicolasa Tsai MD Date/Time: 05/12/20 07:23 Surgeon: Nicolasa Tsai MD Pre Op Diagnosis: right lower extremity mass Patient Data Age: 39 Gender: F Height: 5 ft 8 in Weight: 63.5 kg Allergies Allergy/AdvReac Type Severity Reaction Status Date / Time morphine Allergy Unknown Hives Verified 05/05/20 09:29 prednisone Allergy Unknown swelling Verified 05/05/20 09:29 SURGICAL GLUE Allergy SEVERE Uncoded 05/05/20 09:29 Rash, SWELLING Home Medications Medication Instructions Recorded Confirmed Type dextroamphetamine-amphetamine 30 10 mg PO BID 08/07/19 05/05/20 History mg tablet lisinopril 10 mg PO DAILY 10/06/19 05/05/20 History Probiotic Blend 1 cap PO DAILY 12/04/19 05/05/20 History escitalopram oxalate [Lexapro] 5 mg PO DAILY 12/04/19 05/05/20 History multivitamin 1 tablet PO DAILY 12/04/19 05/05/20 History hydroxyzine HCl 25 mg PO HS 05/05/20 05/05/20 History Patient hx anesthesia problems: none Family hx anesthesia problems: none PMFSH Past Medical History Medical History ADHD Chronic pelvic pain in female Colitis History of colitis in her early 20s. 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 Pelvic inflammatory disease In December 2018 secondary to retained tampon. Thrombophlebitis Surgical History Surgical History History of appendectomy History of X4. History of elbow surgery Left. History of placement of ear tubes History of tonsillectomy Status post excision of lipoma From the back in November 2018, complicated by seroma and subsequent abscess and infection. Status post hysterectomy Family History Family History Grandparent Diabetes mellitus, Onset Age: 198 Family history of malignant neoplasm of stomach, Onset Age: 199 Family history of lupus erythematosus, Onset Age: 200 Family history of malignant neoplasm of uterus Family history of malignant neoplasm of ovary Mother Hypertension Family history of elevated blood lipids Cerebrovascular accident Sibling Hypertension Other Family history of malignant neoplasm of breast Social History Social History Social History: Designates her mother, Latesha Mccabe, as her surrogate decision maker. Code status: Full code. Smoking packs per day: 0.5 Smoking cigarettes per day: 10.0 Years smoked: 5 Smoking pack-years: 2.50 Smoking status: Former smoker Tobacco type: cigarettes Second hand tobacco smoke exposure: Yes Smoking end date: 07/29/09 Additional smoking assessment comments: 2013 Alcohol intake: current Drinks per week: 3 Substance use: never Substance use type: does not use Additional living arrangements comments: [facility]. 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 Ques
--- NOTE | 2020-05-12 07:24 | WPDHPUPDATE1 ---
History and Physical Update Update Date/Time: 05/12/20 07:24 History and Physical has been reviewed, including an updated exam of the patient. There are NO changes in the patient's condition. Risks, benefits, and alternatives have been discussed and questions answered. Patient agrees to proceed with procedure.
[2020-05-12] MEDS: LACTATED RINGERS 1,000 ML 30 ML IV CONT ×2 (07:45→10:54)
[2020-05-12] MEDS: MIDAZOLAM HCL (*CRX) 10 MG/2 ML VIAL 2 MG IV PUSH (07:49)
[2020-05-12] MEDS: ceFAZolin 2 GM/D5W 50 ML 2 GM/50 ML BAG IVPB (10:01)
[2020-05-12] MEDS: LIDOCAINE HCL 1% LOCAL INJ 20 ML VIAL 50 ML INFILTRATE (10:24)
--- NOTE | 2020-05-12 11:15 | PM.PROC ---
Procedure Note - Detailed Date of procedure: 05/12/20 Pre-op diagnosis: right lower extremity mass Post-op diagnosis: same Procedure performed: excisional biopsy R upper thigh mass measuring approx 4x3 cm in aggregate Description of procedure: Patient was brought to the operating room placed in the supine position. After adequate induction of general anesthesia, the patient was prepped and draped in the normal sterile fashion. A time-out was then done to verify the patient's identity, as well as the procedure being performed. Began by making a incision over this mass in the right upper inner thigh with a 15 blade scalpel. The incision was carried through the dermis into the subcutaneous tissue. Once into the subcutaneous tissue, I was able to encounter a multilobular lipoma. I was able to excise this multi lobular lipoma in pieces as it was not well encapsulated. Once the entirety of the mass was excised, the aggregate measurement was approximately 4 x 3 cm. These pieces will be sent to pathology for further review. The cavity was then examined and noted to be hemostatic. Of note the mass was all contained within the subcutaneous tissue and there was no extension into the underlying fascia or muscle. I then closed the subcutaneous tissue with 3 0 Vicryl suture. The skin was closed with 4 Monocryl subcuticular suture. Steri-Strips were then placed on the wound. The patient tolerated the procedure well and was extubated in the operating room postop. She will be sent to the recovery room in stable condition. Anesthesia: GETA and local Surgeon: Nicolasa Tsai MD Estimated blood loss (mL): 5 Drains: No Packing: No Pathology: yes Complications: No immediate complications Condition: stable Disposition: PACU Findings: Multi lobular lipoma
[2020-05-12] MEDS: oxyCODONE HCL (*CRX) 5 MG TAB IR PO (11:52)
== END 2020-05-12 12:45 | disposition home or self-care (01) ==
PROVIDERS: PCP Family Medicine; Visit Provider Surgery
PROC: (CPT 27337; principal; 2020-05-12 09:00)
DX: D17.23 Benign lipomatous neoplasm of skin and subcutaneous tissue of right leg (principal); F90.9 Attention-deficit hyperactivity disorder, unspecified type; I10 Essential (primary) hypertension; Z87.891 Personal history of nicotine dependence
CPT/HCPCS: 27337; 88304; 93005; A9270; J0690; J2250; J2405; J2704; J3010; J7120

== ENCOUNTER 2020-08-10 08:50 | Outpatient (CLI) | payer OTHER, SELFPAY ==
--- NOTE | 2020-08-10 12:00 | NEURO_ITS ---
Impression: # Complains of shooting intermittent numbness of right lower extremity from the knee down. # Normal nerve conduction study except right peroneal nerve amplitude is less than posterior tibial nerve amplitude. # Normal needle/EMG exam. # Clinical correlation recommended; possibility of intermittent compression needs to be evaluated,at the knee level. Nerve Conduction Studies Anti Sensory Summary Table Stim Site NR Peak (ms) P-T Amp (?V) Site1 Site2 Delta-P (ms) Dist (cm) Sd (m/s) Right Sup Fibular Anti Sensory (Ant Lat Mall) 14 cm 2.8 9.3 14 cm Ant Lat Mall 2.8 16.0 57 Right Sural Anti Sensory (Lat Mall) Calf 3.2 14.8 Calf Lat Mall 3.2 16.0 50 Motor Summary Table Stim Site NR Onset (ms) O-P Amp (mV) Site1 Site2 Delta-0 (ms) Dist (cm) Sd (m/s) Right Peroneal Motor (Vastus Med) Ankle 3.1 1.9 Popit Ankle 8.2 40.0 49 Popit 11.3 0.9 Right Tibial Motor (Abd Shaffer Brev) Ankle 3.5 10.0 Knee Ankle 7.9 43.0 54 Knee 11.4 5.7 F Wave Studies NR F-Lat (ms) L-R F-Lat (ms) Right Peroneal (Mrkrs) (EDB) 44.33 Right Tibial (Mrkrs) (Abd Hallucis) 43.69 EMG Side Muscle Nerve Root Ins Act Fibs Amp Dur Recrt Comment Right AntTibialis Dp Br Fibular L4-5 Nml Nml Nml Nml Nml Right Gastroc Tibial S1-2 Nml Nml Nml Nml Nml Right Fibularis Long Sup Br Fibular L5-S1 Nml Nml Nml Nml Nml Right Flex Dig Long Tibial L5-S2 Nml Nml Nml Nml Nml Right Ext Dig Brev Dp Br Fibular L5, S1 Nml Nml Nml Nml Nml MTDD
== END 2020-08-10 08:51 | disposition home or self-care (01) ==
PROVIDERS: PCP Family Medicine; Visit Provider Nurse Practitioner
DX: R20.2 Paresthesia of skin (principal)
CPT/HCPCS: 95886; 95908

== ENCOUNTER 2020-08-23 06:54 | Outpatient (NON) | payer OTHER, SELFPAY ==
[2020-08-23 21:13] LABS: SARS-CoV-2 RNA PCR Negative
== END 2020-08-23 06:55 ==
PROVIDERS: PCP Family Medicine; Visit Provider Family Medicine
DX: R68.89 Other general symptoms and signs (principal); Z20.822 Contact with and (suspected) exposure to COVID-19
CPT/HCPCS: C9803; U0003; U0005

== ENCOUNTER 2020-11-12 09:30 | Outpatient (CLI) | payer OTHER, SELFPAY ==
--- NOTE | ~2020-11-12 | XR_ITS ---
XR abdomen/kub 1V DATE: 11/12/2020 10:19 INDICATION: Lower abdominal pain, bloating, constipation TECHNIQUE: AP views COMPARISON: 10/07/2019 KUB FINDINGS: No bowel obstruction. The psoas shadows are intact. No visceromegaly or significant abnor mal calcification. The lung bases are clear. IMPRESSION: Negative Reviewed, dictated and finalized at [facility] Reviewed, dictated and finalized at [facility]. IMPRESSION: Negative
[2020-11-12 10:07] LABS: Basophils Percent Auto 0.6 % (0.2-1.2); Eosinophils Absolute Auto 0.3 K/mm3 (0-0.3); Eosinophils Percent Auto 4.4 % (0-4.4); Hematocrit 40.2 % (37.0-47.0); Hemoglobin 13.5 g/dL (12.0-15.0); Immature Granulocyte Absolute 0.02 K/mm3 (0.00-0.031); Immature Granulocyte Percent A 0.3 % (0-0.5); Lymphocytes Absolute Auto 1.77 K/mm3 (0.9-3.2); Lymphocytes Percent Auto 27.8 % (18.3-44.2); Mean Corpuscular HGB Conc 33.6 g/dl (32-36); Mean Corpuscular Hemoglobin 29.3 pg (26-34); Mean Corpuscular Volume 87.4 fl (80-100); Mean Platelet Volume 9.5 fl (7.4-10.4); Monocytes Absolute Auto 0.5 K/mm3 (0.1-0.6); Monocytes Percent Auto 7.4 % (2.6-8.5); Neutrophils Absolute Auto 3.8 K/mm3 (1.3-6.7); Neutrophils Percent Auto 59.5 % (45.5-73.1); Platelet Count Result 230 k/mm3 (150-375); Red Cell Distribution Width 12.1 % (11.5-14.5); White Blood Count 6.4 K/mm3 (4.5-10.0)
[2020-11-12 10:20] LABS: Alanine Aminotransferase 22 U/L (4-35); Albumin Level 4.6 g/dL (3.5-5.1); Alkaline Phosphatase 45 U/L (38-126); Anion Gap 3 mmol/L (8-16); Aspartate Amino Transferase 29 U/L (14-36); Bilirubin,Total 0.9 mg/dL (0.2-1.3); Blood Urea Nitrogen 15 mg/dL (7-17); Calcium 9.4 mg/dL (8.4-10.2); Carbon Dioxide 32 mmol/L (22-30); Chloride 102 mmol/L (98-107); Cholesterol 181 mg/dL (0-200); Estimated Glomerular Filt Rate > 60; Glucose 98 mg/dL (65-105); HDL Direct 85 mg/dL; Potassium 4.5 mmol/L (3.4-5.0); Sodium 137 mmol/L (137-145); Triglycerides 63 mg/dL (<150)
[2020-11-12 10:33] LABS: LDL Cholesterol Direct 83 mg/dL
[2020-11-12 10:49] LABS: Total Triiodothyronine (T3) 1.09 NG/ML (0.97-1.69)
[2020-11-12 12:27] LABS: Free T4 Free Thyroxine 0.87 ng/mL (0.78-2.19); Vitamin D 25 Hydroxy 39.5 ng/mL
== END 2020-11-12 09:31 | disposition home or self-care (01) ==
PROVIDERS: PCP Family Medicine; Visit Provider Nurse Practitioner
DX: Z00.00 Encounter for general adult medical examination without abnormal findings (principal); E55.9 Vitamin D deficiency, unspecified; Z13.29 Encounter for screening for other suspected endocrine disorder; Z13.6 Encounter for screening for cardiovascular disorders; Z13.0 Encounter for screening for diseases of the blood and blood-forming organs and certain disorders involving the immune mechanism
CPT/HCPCS: 36415; 74018; 80053; 80061; 82306; 84439; 84443; 84480; 85025

== ENCOUNTER 2020-12-26 23:44 | Emergency (ER) | payer OTHER, SELFPAY ==
[2020-12-26 23:47] VITALS: BP 133/73; PULSE 94; RESP 20; TEMP 36.4; O2SAT 100
[2020-12-27 00:07] LABS: Basophils Percent Auto 0.5 % (0.2-1.2); Eosinophils Absolute Auto 0.3 K/mm3 (0-0.3); Eosinophils Percent Auto 3.9 % (0-4.4); Hematocrit 38.7 % (37.0-47.0); Hemoglobin 13.2 g/dL (12.0-15.0); Immature Granulocyte Absolute 0.02 K/mm3 (0.00-0.031); Immature Granulocyte Percent A 0.2 % (0-0.5); Lymphocytes Absolute Auto 1.91 K/mm3 (0.9-3.2); Lymphocytes Percent Auto 23.6 % (18.3-44.2); Mean Corpuscular HGB Conc 34.1 g/dl (32-36); Mean Corpuscular Hemoglobin 29.7 pg (26-34); Mean Platelet Volume 9.6 fl (7.4-10.4); Monocytes Absolute Auto 0.6 K/mm3 (0.1-0.6); Monocytes Percent Auto 7.6 % (2.6-8.5); Neutrophils Absolute Auto 5.2 K/mm3 (1.3-6.7); Neutrophils Percent Auto 64.2 % (45.5-73.1); Platelet Count Result 242 k/mm3 (150-375); Red Blood Count 4.45 M/mm3 (4.2-5.4); Red Cell Distribution Width 12.1 % (11.5-14.5); White Blood Count 8.1 K/mm3 (4.5-10.0)
[2020-12-27 00:19] LABS: Alanine Aminotransferase 17 U/L (4-35); Albumin Level 4.7 g/dL (3.5-5.1); Alkaline Phosphatase 47 U/L (38-126); Anion Gap 9 mmol/L (8-16); Aspartate Amino Transferase 33 U/L (14-36); Bilirubin,Total 0.3 mg/dL (0.2-1.3); Blood Urea Nitrogen 18 mg/dL (7-17); Calcium 9.8 mg/dL (8.4-10.2); Carbon Dioxide 26 mmol/L (22-30); Chloride 103 mmol/L (98-107); Estimated CRCL calculation 92 ml/min; Estimated Glomerular Filt Rate > 60; Glucose 113 mg/dL (65-105); Lipase 84 U/L (23-300); Potassium 4.6 mmol/L (3.4-5.0); Sodium 138 mmol/L (137-145)
--- NOTE | 2020-12-27 00:21 | PC.NURSE ---
seen walking out of ED waiting room toward parking lot with steady, even, unassisted gait.
== END 2020-12-27 05:27 | disposition left against medical advice (07) ==
PROVIDERS: Emergency Provider Emergency Medicine; PCP Family Medicine
DX: R10.9 Unspecified abdominal pain (principal)
CPT/HCPCS: 36415; 80053; 83690; 85025; 99199

== ENCOUNTER → 2021-02-06 08:00 | Outpatient (CLI) | payer OTHER, SELFPAY ==
[2021-02-06 16:50] LABS: SARS-CoV-2 RNA PCR Negative
== END ==
PROVIDERS: PCP Family Medicine; Visit Provider Family Medicine
DX: R68.89 Other general symptoms and signs (principal); Z20.822 Contact with and (suspected) exposure to COVID-19
CPT/HCPCS: C9803; U0003; U0005

== ENCOUNTER 2021-06-08 02:47 | Day surgery (SDC) | payer OTHER, SELFPAY ==
[2021-06-06 09:37] VITALS: BMI 22.0
--- NOTE | 2021-06-06 09:51 | PC.NURSE ---
Report to the Outpatient Waiting Room, entrance under the green pavilion located off [facility], at time 1130 on date 06/08/21. OR Time: 1330. - You and your visitor will be asked a series of questions to screen for COVID 19 for your protection. - A mask is required within the hospital. - Only one visitor is allowed at this time. Patient visitors will be guided where to wait when not with patient. Preoperative COVID Testing Requirements: No COVID Test needed if: (proof is required; if not received patient will have Rapid Test prior to entry) - Patient has received COVID Vaccine at least 14 days prior to procedure date or - Patient has positive COVID test result within last 90 days of surgery date. COVID Test needed if above criteria is not met If not COVID vaccinated a COVID test must be conducted within 72 hours of surgery and patient is asked to isolate self from time of testing until procedure. You will go to the [facility] for your COVID testing. The [facility] is located at the corner of [address] from [facility]. You will only be called if COVID results are positive and your surgeon may reschedule your elective surgery date. Patients may have clear liquids (water, carbonated beverages, clear teas, apple juice) until 3 hours prior to surgery with a maximum of 20 ounces. - No food from midnight until time of surgery - Infants may have breast milk until 4 hours before surgery, infant formula 6 hours prior to surgery. - Children will be allowed to drink immediately following surgery. If applicable, please bring a bottle or sippy cup to assist with drinking. Juice, water, soda, and popsicles are readily available. For infants on formula, please bring formula the day of surgery. Pacifiers are allowed. Take the following medications with a SIP of water the morning of surgery: ADDERALL Medications to discontinue per physician: VITAMINS Date to take last dose: 3 DAYS PRE-OP Please no make-up, nail urdu, hairspray, perfume, deodorant, or body powder the day of surgery. No jewelry (including any body piercings) or valuables the day of surgery, leave them at home. Please take a shower or bath the night before, or the morning of, surgery with an antibacterial soap. Wear comfortable, loose fitting clothing. Children are encouraged to wear pajamas. - Jewelry must be removed prior to entering the operating room. Rings and piercings that are not removed may be cut off. - The hospital will not accept responsibility for valuables. - Please leave all valuables, including medications, at home the day of surgery. If you are going home after surgery, a licensed flatbed company driver must drive you home. - NO public transportation without another adult. - We recommend that an adult stay with you for 24 hours following discharge. - We also recommend that you do not drive, make important decision, drink alcoholic beverages, or take any drugs that were not prescribed by your health care provider for at least 24 hours after your discharge time. For Pediatric surgeries, we recommend two adults accompany the child home (only one inside the building at this time). Follow any additional instructions given to you from your surgeon. Telephone instructions given to SHAQUILLE SCHROEDER and asked if any additional questions and then verbalized understanding. Patient advised to call surgeon office or pre surgery nurse liaison [phone] if any additional questions.
[2021-06-08] VITALS (8 sets, daily range): BP systolic 90–115; BP diastolic 51–65; PULSE 63–99; RESP 16–18; TEMP 37; O2SAT 96–100
--- NOTE | 2021-06-08 12:15 | PM.IMHP ---
H&P: HPI History of Present Illness Date/Time: 06/08/21 12:15 Ms. Mccabe presents c right upper thigh mass. She underwent excision of a right upper thigh lipoma in 04/2020, after which she healed well without issue. In December of 2020, she developed intermittent shooting pain at her scar. Upon exam, she noticed a mass on her right upper thigh the edge of previous excision, and right posterior thigh mass. Both are tender when pressure is applied (to palpation, when sitting, certain activities, etc.) No overlying skin changes or drainage from areas. Chief Complaint: R upper thigh mass Review of Systems Review of Systems: All systems reviewed & are unremarkable except as noted in HPI and below PMFSH Past Medical History Medical History ADHD Chronic pelvic pain in female Colitis History of colitis in her early 20s. 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 Pelvic inflammatory disease In December 2018 secondary to retained tampon. Thrombophlebitis Surgical History Surgical History H/O: hysterectomy History of appendectomy History of bilateral salpingectomy 12/09/19 History of X4. History of cystoscopy 12/09/19 History of elbow surgery Left. History of placement of ear tubes History of tonsillectomy S/P PAOLO (total abdominal hysterectomy) 12/09/19, with lysis of adhesions Status post excision of lipoma From the back in November 2018, complicated by seroma and subsequent abscess and infection. Family History Family History Grandparent Diabetes mellitus, Onset Age: 198 Family history of malignant neoplasm of stomach, Onset Age: 199 Family history of lupus erythematosus, Onset Age: 200 Family history of malignant neoplasm of uterus Family history of malignant neoplasm of ovary Mother Hypertension Family history of elevated blood lipids Cerebrovascular accident Sibling Hypertension Other Family history of malignant neoplasm of breast Social History Social History Social History: Designates her mother, Latesha Mccabe, as her surrogate decision maker. Code status: Full code. Smoking packs per day: 0.5 Smoking cigarettes per day: 10.0 Years smoked: 8 Smoking pack-years: 4.00 Smoking status: Former smoker Tobacco type: cigarettes Second hand tobacco smoke exposure: Yes Smoking end date: 07/29/15 Additional smoking assessment comments: 2013 Alcohol intake: current Drinks per week: 2 Substance use: never Substance use type: does not use Living arrangements: with family Additional living arrangements comments: [facility] Heck. 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 Gender identity (if verbalized by the patient): Female Spiritual care concerns: No Agree to blood products: Yes Meds Home Medications and Allergies Home Medications Medication Instructions Recorded Confirmed Type lisinopril 10 mg PO DAILY 10/06/19 06/08/21 History multivitamin 1 tablet PO DAILY 12/04/19 06/08/21 History dextroamphetamine-amphetamine 20 mg PO BID 06/06/21 06/08/21 History [Adderall] Allergies Allergy/AdvReac Type Severity Reaction Status Date / Time morphine Allergy Intermediate Hives Verified 06/08/21 12:08 prednisone Allergy Mild swelling Verified 06/08/21 12:08 SURGICAL GLUE Allergy Intermediate SEVERE Uncoded 06/08/21 12:08 Rash, SWELLING Vital Signs Vital Signs - 24 hr 06/08/21 11:48 Temperature 37.0 C Pulse Rate 99 Respiratory Rate 16 Blood Pressure 115/65 Pulse Oximetry 99 Exam Const: General: cooperative, comfortable and no
--- NOTE | 2021-06-08 12:18 | WPDHPUPDATE1 ---
History and Physical Update Update Date/Time: 06/08/21 12:18 History and Physical has been reviewed, including an updated exam of the patient. There are NO changes in the patient's condition. Risks, benefits, and alternatives have been discussed and questions answered. Patient agrees to proceed with procedure.
[2021-06-08] MEDS: LACTATED RINGERS 1,000 ML 30 ML IV CONT (12:25)
--- NOTE | 2021-06-08 12:40 | WPDANESEPPF ---
Anes - Initial Pre Proc Eval Procedure: Operation Date: 06/08/21 13:30 Proposed Procedures p Excisional Biopsy Right Lower Extremity Mass Times Two - Nicolasa Tsai MD Date/Time: 06/08/21 12:40 Surgeon: Nicolasa Tsai MD Pre Op Diagnosis: Rt Lower Extremity Masses X 2 Patient Data Age: 40 Gender: F Height: 1.73 m Weight: 65.5 kg Last Vital Signs Temp 37.0 C 06/08/21 11:48 Pulse 99 06/08/21 11:48 Resp 16 06/08/21 11:48 BP 115/65 06/08/21 11:48 Pulse Ox 99 06/08/21 11:48 Allergies Allergy/AdvReac Type Severity Reaction Status Date / Time morphine Allergy Intermediate Hives Verified 06/08/21 12:08 prednisone Allergy Mild swelling Verified 06/08/21 12:08 SURGICAL GLUE Allergy Intermediate SEVERE Uncoded 06/08/21 12:08 Rash, SWELLING Home Medications Medication Instructions Recorded Confirmed Type lisinopril 10 mg PO DAILY 10/06/19 06/08/21 History multivitamin 1 tablet PO DAILY 12/04/19 06/08/21 History dextroamphetamine-amphetamine 20 mg PO BID 06/06/21 06/08/21 History [Adderall] Patient hx anesthesia problems: none Family hx anesthesia problems: none Results Review: All pre-operative results and documents have been reviewed as part of the pre-operative evaluation. COUNT INCLUDES THE [facility] Past Medical History Medical History ADHD Chronic pelvic pain in female Colitis History of colitis in her early 20s. 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 Pelvic inflammatory disease In December 2018 secondary to retained tampon. Thrombophlebitis Surgical History Surgical History H/O: hysterectomy History of appendectomy History of bilateral salpingectomy 12/09/19 History of X4. History of cystoscopy 12/09/19 History of elbow surgery Left. History of placement of ear tubes History of tonsillectomy S/P PAOLO (total abdominal hysterectomy) 12/09/19, with lysis of adhesions Status post excision of lipoma From the back in November 2018, complicated by seroma and subsequent abscess and infection. Family History Family History Grandparent Diabetes mellitus, Onset Age: 198 Family history of malignant neoplasm of stomach, Onset Age: 199 Family history of lupus erythematosus, Onset Age: 200 Family history of malignant neoplasm of uterus Family history of malignant neoplasm of ovary Mother Hypertension Family history of elevated blood lipids Cerebrovascular accident Sibling Hypertension Other Family history of malignant neoplasm of breast Social History Social History Social History: Designates her mother, Latesha Mccabe, as her surrogate decision maker. Code status: Full code. Smoking packs per day: 0.5 Smoking cigarettes per day: 10.0 Years smoked: 8 Smoking pack-years: 4.00 Smoking status: Former smoker Tobacco type: cigarettes Second hand tobacco smoke exposure: Yes Smoking end date: 07/29/15 Additional smoking assessment comments: 2013 Alcohol intake: current Drinks per week: 2 Substance use: never Substance use type: does not use Living arrangements: with family Additional living arrangements comments: [facility]. 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 Gender identity (if verbalized by the patient): Female Spiritual care concerns: No Agree to blood products: Yes Anes - Eval Final PreProcedure Day of Procedure 06/08/21 12:40 Patient weight: normal Heart: regular rate and rhythm Lungs: clear to auscultation Airway: Mallampati scale class II Neurological: alert and oriented Last oral intake:
[2021-06-08] MEDS: MIDAZOLAM HCL (*CRX) 2 MG/2 ML VIAL IV PUSH (12:42)
[2021-06-08] MEDS: ceFAZolin 2 GM/D5W 50 ML 2 GM/50 ML BAG IVPB (13:24)
[2021-06-08] MEDS: BUPIVACAINE HCL 0.5% PF 30 ML VIAL INFILTRATE (13:53)
--- NOTE | 2021-06-08 14:24 | W.PM.PROC2 ---
Procedure Note - Detailed Date of Procedure 06/08/21 Pre-op Diagnosis Rt Lower Extremity Masses X 2 Post-op Diagnosis same Procedure Performed Excisional biopsy right lower extremity mass x2, right upper inner thigh measuring approximately 2 x 1.5 cm, right lower posterior thigh measuring 2 x 2 cm Surgeon Nicolasa Tsai MD Anesthesia MAC and local Indications 40-year-old female with right lower extremity mass x2, reports growth and discomfort over last 6 mos Findings multi lobular lipoma measuring approximately 2 x 1.5 cm right upper inner thigh, 2 x 2 cm right lower posterior thigh Description of Procedure The patient was taken to the operating room and placed in the supine position. After adequate induction of MAC anesthesia, the patient was prepped and draped in the normal sterile fashion. A time-out was then done to verify the patient's identity, as well as the procedure being performed. I began by localizing both these areas, in the right upper inner thigh as well as the right lower posterior thigh. I then made an elliptical incision over the area in the right upper inner thigh including excising the previous scar. Once through the dermis, and subcutaneous tissue was noted to be a multi lobular lipoma. The area measured approximately 2 x 1.5 cm. I went ahead and excise this area in full. I then gained hemostasis with the Bovie cautery. This was all noted to be contained within the subcutaneous tissue and did not involve the underlying muscle or fascia. I then copiously irrigated the area and no other pathology was encountered. I then closed the subcutaneous tissue with 3-0 Vicryl suture. The skin was closed with 4-0 Monocryl subcuticular suture. Steri-Strips were then placed on the wound. I then made an incision over the mass in the right lower posterior thigh. This was taken through the dermis to the level of the subcutaneous tissue. Again I encountered what looked to be a multi lobular lipoma. This area measured approximately 2 x 2 cm. A completely excise this lipoma and no other pathology was noted. Again this was all contained within the subcutaneous tissue and did not involve the underlying fascia or muscle. I again gained hemostasis with Bovie cautery and irrigated the cavity. I then closed the subcutaneous tissue with 3-0 Vicryl suture. The skin was again closed with 4-0 Monocryl subcuticular suture. Steri-Strips were placed on this wound as well. The patient tolerated the procedure well and will be transferred to the recovery room in stable condition. Estimated Blood Loss 5 Drains No Packing No Pathology yes Complications No immediate complications Condition stable
[2021-06-08] MEDS: fentaNYL CITRATE INJ (*CRX) 100 MCG/2 ML VIAL 25 MCG IV PUSH ×4 (14:28→15:33)
[2021-06-08] MEDS: HYDROcodone/acetaminophen (*CRX) 5-325 MG TABLET 1 TAB PO (14:56)
--- NOTE | 2021-06-08 16:03 | SUR.PHASEII ---
pt meets discharge criteria and is now getting dressed and waiting for her ride to arrive.
--- NOTE | 2021-06-08 16:17 | SUR.PHASEII ---
delay pt discharge due to increase pain and soft bp. pt BP improved after oral and IV fluids. pt pain improved after IV and oral pain meds.
== END 2021-06-08 16:14 | disposition home or self-care (01) ==
PROVIDERS: PCP Family Medicine; Visit Provider Surgery
PROC: (CPT 27337; principal; 2021-06-08 13:30)
DX: D17.23 Benign lipomatous neoplasm of skin and subcutaneous tissue of right leg (principal); F90.9 Attention-deficit hyperactivity disorder, unspecified type; I10 Essential (primary) hypertension; Z87.891 Personal history of nicotine dependence
CPT/HCPCS: 27337 ×2; 88304; A9270; J0131; J0690; J1100; J2250; J2405; J2704; J3010; J7120

== ENCOUNTER 2022-05-04 13:36 | Emergency (ER) | payer OTHER, SELFPAY ==
--- NOTE | ~2022-05-04 | XR_ITS ---
EXAMINATION: XR finger 1st LT min 2V DATE: 05/04/2022 13:59 INDICATION: Left thumb pain. TECHNIQUE: 3 views of left thumb were obtained. COMPARISON: Left hand radiographs 08/01/2012 FINDINGS: Bone alignment is normal. No fracture. Joint spaces are well maintained. IMPRESSION: 1. No fracture. Reviewed, dictated and finalized at location B. IMPRESSION: 1. No fracture.
[2022-05-04 13:49] VITALS: BP 159/83; PULSE 116; RESP 20; TEMP 36.9; O2SAT 99
[2022-05-04 13:51] VITALS: BP 159/83; PULSE 116; RESP 20; TEMP 36.9; O2SAT 99
--- NOTE | 2022-05-04 13:56 | ED.UPPEXIN ---
HPI - Extremity Injury (Upper) General Chief Complaint: Extremity Injury, Upper Stated Complaint: Injury to left thumb Time Seen by Provider: 05/04/22 14:06 Source: patient and RN notes reviewed Mode of arrival: ambulatory Limitations: no limitations History of Present Illness HPI narrative: 47-year-old female presents concern for injury to the first digit of the left hand. Reports while playing kickball last night she jammed the digit. She reports swelling, decreased strength and range of motion. She reports she has been using ice and taking ibuprofen without relief. She reports previous history of fracture in that digit. MD complaint: injury to: left and finger Related Data Home Medications Medication Instructions Recorded Confirmed cetirizine 10 mg tablet 10 mg PO DAILY 05/04/22 05/04/22 dextroamphetamine-amphetamine ER 30 mg PO DAILY 05/04/22 05/04/22 30 mg 24hr capsule,extend release Allergies Allergy/AdvReac Type Severity Reaction Status Date / Time morphine Allergy Intermediate Hives Verified 05/04/22 13:48 prednisone Allergy Mild swelling Verified 05/04/22 13:48 SURGICAL GLUE Allergy Intermediate SEVERE Uncoded 05/04/22 13:48 Rash, SWELLING Review of Systems Review of Systems: CONSTITUTIONAL: Denies malaise, chills, sweats, or fever. CARDIOVASCULAR: Denies chest pain, palpitations, or edema. RESPIRATORY: Denies cough or dyspnea. SKIN: Denies rash or itching, bruising, redness MUSCULOSKELETAL: Reports pain, decreased strength and range of motion in the first digit of the left hand NEUROLOGIC: Denies numbness, weakness All systems reviewed & are unremarkable except as noted in HPI and below PMFSH Past Medical History Medical History ADHD Chronic pelvic pain in female Colitis History of colitis in her early 20s. 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 Pelvic inflammatory disease In December 2018 secondary to retained tampon. Thrombophlebitis Surgical History Surgical History H/O excision of mass 06/08/21 Excisional biopsy right lower extremity mass x2, right upper inner thigh measuring approximately 2 x 1.5 cm, right lower posterior thigh measuring 2 x 2 cm H/O: hysterectomy History of appendectomy History of bilateral salpingectomy 12/09/19 History of X4. History of cystoscopy 12/09/19 History of elbow surgery Left. History of placement of ear tubes History of tonsillectomy S/P PAOLO (total abdominal hysterectomy) 12/09/19, with lysis of adhesions Status post excision of lipoma From the back in November 2018, complicated by seroma and subsequent abscess and infection. Family History Family History Grandparent Diabetes mellitus, Onset Age: 198 Family history of malignant neoplasm of stomach, Onset Age: 199 Family history of lupus erythematosus, Onset Age: 200 Family history of malignant neoplasm of uterus Family history of malignant neoplasm of ovary Mother Hypertension Family history of elevated blood lipids Cerebrovascular accident Sibling Hypertension Other Family history of malignant neoplasm of breast Social History Social History Social History: Designates her mother, Latesha Mccabe, as her surrogate decision maker. Code status: Full code. Smoking packs per day: 0.5 Smoking cigarettes per day: 10.0 Years smoked: 8 Smoking pack-years: 4.00 Smoking status: Former smoker Tobacco type: cigarettes Second hand tobacco smoke exposure: Yes Smoking end date: 07/29/15 Additional smoking assessment comments: 2013 Alcohol intake: current
== END 2022-05-04 14:21 | disposition home or self-care (01) ==
PROVIDERS: Emergency Provider Nurse Practitioner; PCP Family Medicine
DX: S69.92XA Unspecified injury of left wrist, hand and finger(s), initial encounter (principal); X58.XXXA Exposure to other specified factors, initial encounter; Y93.6A Activity, physical games generally associated with school recess, summer camp and children; F90.9 Attention-deficit hyperactivity disorder, unspecified type; N80.9 Endometriosis, unspecified; J45.990 Exercise induced bronchospasm; I10 Essential (primary) hypertension; Z86.72 Personal history of thrombophlebitis; Z87.891 Personal history of nicotine dependence
CPT/HCPCS: 73140; 99213; G0463

== ENCOUNTER 2022-10-19 00:25 | Day surgery (SDC) | payer OTHER, SELFPAY ==
[2022-09-26 14:14] VITALS: BMI 22.1
--- NOTE | 2022-10-19 09:15 | WPDANESEPPF ---
Anes - Initial Pre Proc Eval Procedure: Operation Date: 10/19/22 12:30 Proposed Procedures p Screening Colonoscopy - Shawn Florez MD Date/Time: 10/19/22 09:15 Surgeon: Shawn Florez MD Pre Op Diagnosis: neoplasm screening Patient Data Age: 42 Gender: F Height: 1.73 m Weight: 66.25 kg Allergies Allergy/AdvReac Type Severity Reaction Status Date / Time prednisone Allergy Severe Swelling Verified 10/19/22 11:28 of Lip/Tongue/Throat morphine Allergy Intermediate Hives Verified 10/19/22 11:28 SURGICAL GLUE Allergy Severe SEVERE Uncoded 10/19/22 11:28 Rash, SWELLING Home Medications Medication Instructions Recorded Confirmed Type dextroamphetamine-amphetamine ER 30 mg PO DAILY 05/04/22 10/19/22 History 30 mg 24hr capsule,extend release Patient hx anesthesia problems: none Family hx anesthesia problems: none Results Review: All pre-operative results and documents have been reviewed as part of the pre-operative evaluation. [facility] Past Medical History Medical History (Updated 10/19/22 @ 11:58 by Kevin Storm DO) ADHD Chronic pelvic pain in female Colitis History of colitis in her early 20s. 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 Thrombophlebitis Surgical History Surgical History H/O excision of mass 06/08/21 Excisional biopsy right lower extremity mass x2, right upper inner thigh measuring approximately 2 x 1.5 cm, right lower posterior thigh measuring 2 x 2 cm H/O: hysterectomy History of appendectomy History of bilateral salpingectomy 12/09/19 History of X4. History of cystoscopy 12/09/19 History of elbow surgery Left. History of placement of ear tubes History of tonsillectomy S/P PAOLO (total abdominal hysterectomy) 12/09/19, with lysis of adhesions Status post excision of lipoma From the back in November 2018, complicated by seroma and subsequent abscess and infection. Family History Family History Grandparent Diabetes mellitus, Onset Age: 198 Family history of malignant neoplasm of stomach, Onset Age: 199 Family history of lupus erythematosus, Onset Age: 200 Family history of malignant neoplasm of uterus Family history of malignant neoplasm of ovary Mother Hypertension Family history of elevated blood lipids Cerebrovascular accident Sibling Hypertension Other Family history of malignant neoplasm of breast Social History Social History Social History: Designates her mother, Latesha Mccabe, as her surrogate decision maker. Code status: Full code. Smoking packs per day: 0.5 Smoking cigarettes per day: 10.0 Years smoked: 8 Smoking pack-years: 4.00 Smoking status: Former smoker Tobacco type: cigarettes Second hand tobacco smoke exposure: Yes Smoking end date: 07/29/15 Additional smoking assessment comments: 2013 Alcohol intake: current Drinks per week: 5 Alcohol use details: GLASSES WINE Substance use: never Substance use type: does not use Living arrangements: with family Additional living arrangements comments: [facility] [place]. 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 Gender identity (if verbalized by the patient): Female Spiritual care concerns: No Agree to blood products: Yes Anes - Eval Final PreProcedure Day of Procedure 10/19/22 09:15 Patient weight: normal Heart: regular rate and rhythm Lungs: clear to auscultation and normal air movement Airway: Mallampati scale class II Neurological: alert and oriented Last oral intake: >/= 8 hours ASA classification: II Emergent: no Anesthetic plan: proceed Anesthesia type and monitoring:
[2022-10-19 11:30] VITALS: BP 129/78; PULSE 105; RESP 18; TEMP 36.6; O2SAT 99
[2022-10-19] MEDS: LACTATED RINGERS 1,000 ML 150 ML IV CONT (11:36)
--- NOTE | 2022-10-19 11:49 | PM.HPGS ---
History of Present Illness History of Present Illness Consent: Risks, benefits, and alternatives have been discussed and questions answered. Patient agrees to proceed with procedure. Chief complaint: neoplasm screening Narrative: Shoshana Mccabe is a 42 year old female Presents for screening colonoscopy. Patient's current weight appetite and bowel movements are normal. Patient denies abdominal pain. She has had no bleeding. Family history is noncontributory. Patient does report a history of irritable bowel syndrome with diarrhea alternating with constipation. Review of Systems Review of Systems: Review of systems noncontributory. [facility] Past Medical History Medical History ADHD Chronic pelvic pain in female Colitis History of colitis in her early 20s. 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 Pelvic inflammatory disease In December 2018 secondary to retained tampon. Thrombophlebitis Surgical History Surgical History H/O excision of mass 06/08/21 Excisional biopsy right lower extremity mass x2, right upper inner thigh measuring approximately 2 x 1.5 cm, right lower posterior thigh measuring 2 x 2 cm H/O: hysterectomy History of appendectomy History of bilateral salpingectomy 12/09/19 History of X4. History of cystoscopy 12/09/19 History of elbow surgery Left. History of placement of ear tubes History of tonsillectomy S/P PAOLO (total abdominal hysterectomy) 12/09/19, with lysis of adhesions Status post excision of lipoma From the back in November 2018, complicated by seroma and subsequent abscess and infection. Family History Family History Grandparent Diabetes mellitus, Onset Age: 198 Family history of malignant neoplasm of stomach, Onset Age: 199 Family history of lupus erythematosus, Onset Age: 200 Family history of malignant neoplasm of uterus Family history of malignant neoplasm of ovary Mother Hypertension Family history of elevated blood lipids Cerebrovascular accident Sibling Hypertension Other Family history of malignant neoplasm of breast Social History Social History Social History: Designates her mother, Latesha Mccabe, as her surrogate decision maker. Code status: Full code. Smoking packs per day: 0.5 Smoking cigarettes per day: 10.0 Years smoked: 8 Smoking pack-years: 4.00 Smoking status: Former smoker Tobacco type: cigarettes Second hand tobacco smoke exposure: Yes Smoking end date: 07/29/15 Additional smoking assessment comments: 2013 Alcohol intake: current Drinks per week: 5 Alcohol use details: GLASSES WINE Substance use: never Substance use type: does not use Living arrangements: with family Additional living arrangements comments: [facility]. 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 Gender identity (if verbalized by the patient): Female Spiritual care concerns: No Agree to blood products: Yes Meds Home Medications and Allergies Home Medications Medication Instructions Recorded Confirmed Type dextroamphetamine-amphetamine ER 30 mg PO DAILY 05/04/22 10/19/22 History 30 mg 24hr capsule,extend release Allergies Allergy/AdvReac Type Severity Reaction Status Date / Time prednisone Allergy Severe Swelling Verified 10/19/22 11:28 of Lip/Tongue/Throat morphine Allergy Intermediate Hives Verified 10/19/22 11:28 SURGICAL GLUE Allergy Severe SEVERE Uncoded 10/19/22 11:28 Rash, SWELLING Vital Signs Vital Signs - 24 hr 10/19/22 11:30 Temperature 97.8 F Pulse Rate 1
[2022-10-19 12:51] VITALS: BP 104/64; PULSE 91; RESP 17; O2SAT 100
[2022-10-19 13:01] VITALS: BP 117/66; PULSE 98; RESP 25; O2SAT 100
[2022-10-19 13:11] VITALS: BP 139/86; PULSE 99; RESP 24; O2SAT 100
== END 2022-10-19 13:18 | disposition home or self-care (01) ==
PROVIDERS: PCP Family Medicine; Visit Provider Internal Medicine Gastroenterology
PROC: 0DJD8ZZ Inspection of Lower Intestinal Tract, Via Natural or Artificial Opening Endoscopic (ICD-10-PCS; CPT 45378; principal; 2022-10-19 12:30)
DX: Z12.11 Encounter for screening for malignant neoplasm of colon (principal); K64.8 Other hemorrhoids; F90.9 Attention-deficit hyperactivity disorder, unspecified type; Z87.891 Personal history of nicotine dependence
CPT/HCPCS: 45378; J2704; J7120

== ENCOUNTER 2023-10-02 11:09 | Outpatient (CLI) | payer OTHER, SELFPAY ==
[2023-10-02 13:02] LABS: Free T4 Free Thyroxine Reflex 1.02 ng/dL (0.78-2.19)
[2023-10-02 15:01] LABS: Total Triiodothyronine (T3) 1.27 NG/ML (0.97-1.69)
[2023-10-05 07:43] LABS: FSH 7.1 mIU/mL (***)
[2023-10-06 11:01] LABS: Testosterone Total 10 ng/dL (2-45)
[2023-10-09 22:02] LABS: Estradiol, Ultrasensitive 64 pg/mL
== END 2023-10-02 11:10 | disposition home or self-care (01) ==
LOC: ANHLAB 11:11
PROVIDERS: PCP Family Medicine; Visit Provider Obstetrics & Gynecology
DX: N95.1 Menopausal and female climacteric states (principal)
CPT/HCPCS: 36415; 82670; 83001; 84403; 84439; 84443; 84480

== ENCOUNTER 2023-10-19 19:51 | Emergency (ER) | payer OTHER, SELFPAY ==
[2023-10-19 20:00] VITALS: BP 151/88; PULSE 109; RESP 16; TEMP 36.8; O2SAT 100
--- NOTE | 2023-10-19 20:00 | ED.GENADULT ---
HPI - General Adult General Chief complaint: Ear Stated complaint: EARACHE Source: patient, RN notes reviewed and old records reviewed Mode of arrival: ambulatory Limitations: no limitations History of Present Illness HPI narrative: 43-year-old female presents to [facility] with complaints congestion, sinus pressure, left ear pain, neck pain that started Saturday. Patient taking Tylenol and ibuprofen with no relief. Patient denies any other symptoms. Patient states symptoms have worsened Related Data Home Medications Medication Instructions Recorded Confirmed dextroamphetamine-amphetamine ER 20 mg PO DAILY 05/04/22 10/19/23 30 mg 24hr capsule,extend release Allergies Allergy/AdvReac Type Severity Reaction Status Date / Time prednisone Allergy Severe Swelling Verified 10/19/23 19:57 of Lip/Tongue/Throat morphine Allergy Intermediate Hives Verified 10/19/23 19:57 SURGICAL GLUE Allergy Severe SEVERE Uncoded 10/19/23 19:57 Rash, SWELLING Review of Systems Constitutional: Constitutional: Reports no additional constitutional complaints, Denies body ache(s), Denies chills, Denies fatigue, Denies fever(s) and Denies headache(s) Eyes: Eyes: Reports no additional eye complaints and Denies blurry vision ENT: Reports system reviewed and no additional complaints, except as documented, Denies vertigo, Denies dizziness, Denies ear discharge, Reports otalgia, Denies facial pain, Reports headache(s), Reports nasal congestion, Reports nasal discharge, Denies sinus pain, Reports sinus pressure and Denies sore throat Cardiovascular: Cardiovascular: Reports no additional cardiovascular complaints, Denies chest pain, Denies chest pain at rest, Denies rapid heart rate and Denies dyspnea Respiratory: Respiratory: Reports no additional respiratory complaints, Denies chest congestion, Denies cough, Denies pain on inspiration, Denies pain with cough and Denies dyspnea Gastrointestinal: Gastrointestinal: Denies abdominal pain, Denies diarrhea, Denies nausea and Denies vomiting Integumentary/Breasts: Skin/Breast: Denies rash Neurologic: Reports system reviewed and no additional complaints, except as documented, Denies vertigo, Denies dizziness and Denies headache(s) Endocrine: Endocrine: Denies fatigue PMFSH Past Medical History Medical History ADHD Chronic pelvic pain in female Colitis History of colitis in her early 20s. 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 Thrombophlebitis Surgical History Surgical History H/O excision of mass 06/08/21 Excisional biopsy right lower extremity mass x2, right upper inner thigh measuring approximately 2 x 1.5 cm, right lower posterior thigh measuring 2 x 2 cm H/O: hysterectomy History of appendectomy History of bilateral salpingectomy 12/09/19 History of X4. History of cystoscopy 12/09/19 History of elbow surgery Left. History of placement of ear tubes History of tonsillectomy S/P PAOLO (total abdominal hysterectomy) 12/09/19, with lysis of adhesions Status post excision of lipoma From the back in November 2018, complicated by seroma and subsequent abscess and infection. Family History Family History Grandparent Diabetes mellitus, Onset Age: 198 Family history of malignant neoplasm of stomach, Onset Age: 199 Family history of lupus erythematosus, Onset Age: 200 Family history of malignant neoplasm of uterus Family history of malignant neoplasm of ovary Mother Hypertension Family history of elevated blood lipids Cerebrovascular accident Sibling Hypertension Other Family history of malignant neoplasm of breast Social History Socia
== END 2023-10-19 20:06 | disposition home or self-care (01) ==
PROVIDERS: Emergency Provider Registered Nurse; PCP Family Medicine
DX: H66.92 Otitis media, unspecified, left ear (principal); Z87.891 Personal history of nicotine dependence; F90.9 Attention-deficit hyperactivity disorder, unspecified type; N80.9 Endometriosis, unspecified
CPT/HCPCS: 99213; G0463

== ENCOUNTER 2023-11-02 10:29 | Outpatient (CLI) | payer OTHER, SELFPAY ==
--- NOTE | ~2023-11-02 | MM_ITS ---
EXAMINATION: MM screening kenneth BI w sha HISTORY: Screening mammogram TECHNIQUE: Craniocaudal and mediolateral oblique 3-D tomosynthesis images were obtained and synthetic 2-D images were generated. Bilateral rotated lateral CC views. CAD analysis was submitted and interp reted. COMPARISON: 10/01/2016 bilateral diagnostic mammogram 06/15/2016 bilateral diagnostic mammogram and bilateral complete breast ultrasound examination BREAST PARENCHYMAL COMPOSITION: The breasts are extremely dense, which lowers the sensitivity of mamm ography. FINDINGS: There are scattered bilateral benign calcifications. There is no evidence of suspicious mas s, calcification, or architectural distortion to suggest malignancy in either breast. There has been no suspicious interval change. IMPRESSION: 1. No mammographic evidence of malignancy. 2. Recommend routine screening mammography in one year. BI-RADS Category 1: Negative Reviewed, dictated and finalized at location B.
== END 2023-11-02 10:30 | disposition home or self-care (01) ==
PROVIDERS: PCP Family Medicine; Visit Provider Obstetrics & Gynecology
DX: Z12.31 Encounter for screening mammogram for malignant neoplasm of breast (principal)
CPT/HCPCS: 77063; 77067

== ENCOUNTER 2023-12-10 09:06 | Outpatient (CLI) | payer OTHER, SELFPAY ==
[2023-12-10 09:31] LABS: Basophils Percent Auto 0.5 % (0.2-1.2); Eosinophils Absolute Auto 0.1 K/mm3 (0-0.3); Eosinophils Percent Auto 2.5 % (0-4.4); Hematocrit 38.8 % (37.0-47.0); Hemoglobin 13.2 g/dL (12.0-15.0); Immature Granulocyte Absolute 0.01 K/mm3 (0.00-0.031); Immature Granulocyte Percent A 0.2 % (0-0.5); Lymphocytes Absolute Auto 1.44 K/mm3 (0.9-3.2); Lymphocytes Percent Auto 33.2 % (18.3-44.2); Mean Corpuscular Hemoglobin 31.1 pg (26-34); Mean Corpuscular Volume 91.5 fl (80-100); Mean Platelet Volume 9.8 fl (7.4-10.4); Monocytes Absolute Auto 0.4 K/mm3 (0.1-0.6); Neutrophils Absolute Auto 2.4 K/mm3 (1.3-6.7); Neutrophils Percent Auto 54.6 % (45.5-73.1); Platelet Count Result 190 k/mm3 (150-375); Red Blood Count 4.24 M/mm3 (4.2-5.4); Red Cell Distribution Width 12.3 % (11.5-14.5); White Blood Count 4.3 K/mm3 (4.5-10.0)
[2023-12-10 10:16] LABS: Free T4 Free Thyroxine 1.25 ng/mL (0.78-2.19)
[2023-12-10 12:09] LABS: Alanine Aminotransferase 96 U/L (6-35); Albumin Level 4.2 g/dL (3.5-5.1); Alkaline Phosphatase 85 U/L (38-126); Anion Gap 7 mmol/L (4-12); Aspartate Amino Transferase 58 U/L (14-36); Bilirubin,Total 0.7 mg/dL (0.2-1.3); Blood Urea Nitrogen 12 mg/dL (7-17); Calcium 9.2 mg/dL (8.4-10.2); Carbon Dioxide 25 mmol/L (22-30); Chloride 105 mmol/L (98-107); Cholesterol 167 mg/dL (0-200); Estimated Glomerular Filt Rate > 60; Glucose 102 mg/dL (65-110); HDL Direct 87 mg/dL; Potassium 3.6 mmol/L (3.4-5.0); Sodium 137 mmol/L (137-145); Triglycerides 62 mg/dL (<150)
[2023-12-10 12:21] LABS: LDL Cholesterol Direct 68 mg/dL
[2023-12-10 12:39] LABS: Total Triiodothyronine (T3) 1.17 NG/ML (0.97-1.69)
== END 2023-12-10 09:07 | disposition home or self-care (01) ==
LOC: ANHLAB 09:09
PROVIDERS: PCP Family Medicine; Visit Provider Registered Nurse
DX: F90.9 Attention-deficit hyperactivity disorder, unspecified type (principal); I10 Essential (primary) hypertension; R53.83 Other fatigue; R53.1 Weakness; E78.5 Hyperlipidemia, unspecified
CPT/HCPCS: 36415; 80053; 80061; 84439; 84443; 84480; 85025

== ENCOUNTER 2024-02-12 20:52 | Emergency (ER) | payer OTHER, SELFPAY ==
--- NOTE | ~2024-02-12 | XR_ITS ---
XR chest 2V Ordering provider: Yolanda Key PA-C History: 43 years Female with . weakness, body aches, post op pain . Comparison: January 11, 2019 FINDINGS: MEDIASTINUM: The cardiac silhouette is not enlarged. LUNGS: No infiltrates, effusions or pneumothorax. OTHER: No free air under the diaphragm. IMPRESSION: No acute cardiopulmonary pathology. Reviewed, dictated and finalized at location A.
--- NOTE | ~2024-02-12 | CT_ITS ---
CT of the Abdomen and Pelvis: Indication: Abdominal pain Technique: 2.5 mm axial scans were obtained through the abdomen and pelvis following intravenous adm inistration of 100 cc of Omnipaque 350. Dose reduction technique was used on this scan by utilizing a utomated exposure control and iterative reconstruction technique. The dose-length product (DLP) was 2 41.88 mGy-cm. Findings: Scans through the lung bases are unremarkable. The liver, pancreas, gallbladder, adrenals and kidneys are within normal limits. Spleen is mildly enl arged, measuring 14.4 cm in length. No evidence of aortic aneurysm. No lymphadenopathy. No bowel obstruction or bowel wall thickening. There is no evidence to suggest acute appendicitis. Images through the pelvis were performed. Urinary bladder unremarkable. There is a 5.0 x 3.6 probable cystic right adnexal mass. No ascites. Impression: 5.0 x 3.6 cm probable cystic right adnexal mass. Consider pelvic ultrasound for further evaluation. Mild splenomegaly, nonspecific. Reviewed, dictated and finalized at [facility]. Impression: 5.0 x 3.6 cm probable cystic right adnexal mass. Consider pelvic ultrasound for further evaluation. Mild splenomegaly, nonspecific.
--- NOTE | ~2024-02-12 | US_ITS ---
Pelvic ultrasound. Clinical History: Left ovarian cyst, torsion Technique: Realtime transabdominal and transvaginal scanning of the pelvis was performed. Color flow Doppler and Doppler spectral analysis were performed. Findings: The uterus is absent, compatible prior hysterectomy. The right ovary measures 5.7 x 4.7 x 4.5 cm. Complex right ovarian cyst measures 4.6 cm in diameter, compatible with hemorrhagic cyst. The left ovary measures 2.8 x 1.6 x 2.2 cm. No significant left ovarian or adnexal mass is seen. No evidence of torsion. Vascular flow present in both ovaries on color Doppler analysis. There is no evidence of free fluid in the cul de sac. Impression: 4.6 cm right ovarian hemorrhagic cyst. No evidence for torsion. Reviewed, dictated and finalized at [facility]. Impression: 4.6 cm right ovarian hemorrhagic cyst. No evidence for torsion.
--- NOTE | ~2024-02-12 | XR_ITS ---
XR wrist LT min 3V Ordering provider: Yolanda Key PA-C History: . post op pain . Comparison: May 14, 2022 FINDINGS: BONES: No acute fracture or dislocation. No definite scaphoid fracture. JOINT SPACES: Well maintained. SOFT TISSUES: Normal. IMPRESSION: No acute osseous abnormality left wrist. Reviewed, dictated and finalized at location A.
[2024-02-12 20:55] VITALS: BP 146/79; PULSE 107; RESP 15; TEMP 36.8; O2SAT 100
[2024-02-12 22:58] VITALS: BP 122/78; PULSE 90; RESP 16; TEMP 37.2; O2SAT 100
--- NOTE | 2024-02-12 23:04 | ECG_ITS ---
Test Date: 2024-02-12 23:48:01 Measurements Intervals [place] Rate: 80 P: 59 TN: 115 QRS: 78 QRSD: 87 T: 53 QT: 359 QTc: 415 Interpretive Statements SINUS RHYTHM WITH SHORT TN INTERVAL BORDERLINE ECG No previous ECG available for comparison Electronically Signed On 02-13-2024 06:30:59 CDT by Garland Hay D.O.
--- NOTE | 2024-02-12 23:07 | ED.WOUNDLAC ---
HPI - Wound/Laceration General Chief Complaint: Wound/Laceration Stated Complaint: rash Time Seen by Provider: 02/12/24 22:54 History of Present Illness HPI narrative: 43-year-old female presents to the emergency department chills, body aches, and lower abdominal pain since yesterday. States she developed a fever of 103 yesterday. She is also reporting pain to her L wrist. Patient underwent a tendon repair at [facility] on December 29. She denies any acute worsening pain, She has not been able to move her wrist since the surgery. She states since yesterday she developed chills, fever 103 yesterday, lower abdominal pain. She nurses a history of multiple sections and a laparoscopic surgery for endometriosis. She denies dysuria or hematuria, nausea or vomiting, diarrhea, cough or congestion, sore throat. She states her right ear was hurting earlier but that has since resolved. Denies sick contacts. Related Data Home Medications Medication Instructions Recorded Confirmed dextroamphetamine-amphetamine ER 20 mg PO DAILY 05/04/22 10/19/23 30 mg 24hr capsule,extend release Allergies Allergy/AdvReac Type Severity Reaction Status Date / Time prednisone Allergy Severe Swelling Verified 02/12/24 21:00 of Lip/Tongue/Throat morphine Allergy Intermediate Hives Verified 02/12/24 21:00 SURGICAL GLUE Allergy Severe SEVERE Uncoded 10/19/23 19:57 Rash, SWELLING Review of Systems Review of Systems: All systems reviewed & are unremarkable except as noted in HPI and below PMFSH Past Medical History Medical History ADHD Chronic pelvic pain in female Colitis History of colitis in her early 20s. 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 Thrombophlebitis Surgical History Surgical History H/O excision of mass 06/08/21 Excisional biopsy right lower extremity mass x2, right upper inner thigh measuring approximately 2 x 1.5 cm, right lower posterior thigh measuring 2 x 2 cm H/O: hysterectomy History of appendectomy History of bilateral salpingectomy 12/09/19 History of X4. History of cystoscopy 12/09/19 History of elbow surgery Left. History of placement of ear tubes History of tonsillectomy S/P PAOLO (total abdominal hysterectomy) 12/09/19, with lysis of adhesions Status post excision of lipoma From the back in November 2018, complicated by seroma and subsequent abscess and infection. Family History Family History Grandparent Diabetes mellitus, Onset Age: 198 Family history of malignant neoplasm of stomach, Onset Age: 199 Family history of lupus erythematosus, Onset Age: 200 Family history of malignant neoplasm of uterus Family history of malignant neoplasm of ovary Mother Hypertension Family history of elevated blood lipids Cerebrovascular accident Sibling Hypertension Other Family history of malignant neoplasm of breast Social History Social History Social History: Designates her mother, Latesha Mccabe, as her surrogate decision maker. Code status: Full code. Smoking packs per day: 0.5 Smoking cigarettes per day: 10.0 Years smoked: 8 Smoking pack-years: 4.00 Smoking status: Former smoker Tobacco type: cigarettes Second hand tobacco smoke exposure: Yes Smoking end date: 07/29/15 Additional smoking assessment comments: 2013 Alcohol intake: current Drinks per week: 5 Alcohol use details: GLASSES WINE Substance use: never Substance use type: does not use Living arrangements: with family Additional living arrangements comments: [facility]. Additional occupation/education co
[2024-02-12] MEDS: ACETAMINOPHEN 500 MG TABLET 1000 MG PO (23:19)
[2024-02-12 23:22] LABS: Basophils Percent Auto 0.6 % (0.2-1.2); Eosinophils Absolute Auto 0.1 K/mm3 (0-0.3); Hematocrit 38.4 % (37.0-47.0); Hemoglobin 13.3 g/dL (12.0-15.0); Immature Granulocyte Absolute 0.02 K/mm3 (0.00-0.031); Immature Granulocyte Percent A 0.4 % (0-0.5); Lymphocytes Absolute Auto 1.05 K/mm3 (0.9-3.2); Lymphocytes Percent Auto 20.7 % (18.3-44.2); Mean Corpuscular HGB Conc 34.6 g/dl (32-36); Mean Corpuscular Hemoglobin 31.4 pg (26-34); Mean Corpuscular Volume 90.8 fl (80-100); Mean Platelet Volume 9.9 fl (7.4-10.4); Monocytes Absolute Auto 0.9 K/mm3 (0.1-0.6); Monocytes Percent Auto 17.6 % (2.6-8.5); Neutrophils Percent Auto 58.7 % (45.5-73.1); Platelet Count Result 183 k/mm3 (150-375); Red Blood Count 4.23 M/mm3 (4.2-5.4); White Blood Count 5.1 K/mm3 (4.5-10.0)
[2024-02-12] MEDS: KETOROLAC 15 MG/ML VIAL (*BKC) IV PUSH (23:36)
[2024-02-12] MEDS: SODIUM CHLORIDE 0.9% IV 1,000 ML 999 ML IV CONT (23:36)
[2024-02-12 23:41] LABS: Alanine Aminotransferase 15 U/L (6-35); Albumin Level 4.4 g/dL (3.5-5.1); Alkaline Phosphatase 50 U/L (38-126); Anion Gap 8 mmol/L (4-12); Aspartate Amino Transferase 24 U/L (14-36); Bilirubin,Total 0.6 mg/dL (0.2-1.3); Blood Urea Nitrogen 17 mg/dL (7-17); CRP 8.3 mg/dL (<1.0); Carbon Dioxide 28 mmol/L (22-30); Chloride 97 mmol/L (98-107); Estimated CRCL calculation 115 ml/min; Estimated Glomerular Filt Rate > 60; Glucose 120 mg/dL (65-110); Lipase 64 U/L (23-300); Potassium 3.9 mmol/L (3.4-5.0); Sodium 133 mmol/L (137-145)
[2024-02-12 23:50] LABS: Influenza A QL RT-PCR Negative (Negative); Influenza B QL RT-PCR Negative (Negative); RSV RNA, RT-PCR Negative (Negative); SARS-CoV-2 RNA PCR Negative (Negative)
[2024-02-12 23:54] LABS: Appearance Urine Clear (Clear); Bilirubin Urine Negative (Negative); Blood Urine Negative (Negative); Color Urine Yellow (Yellow); Glucose Urine UA Negative (Negative); Ketones Urine 1+ mg/dL (Negative); Leukocyte Esterase Ur Negative LEU/UL (Negative); Nitrate Urine Negative (Negative); Protein Urine Negative (Negative); Specific Grav Ur 1.021 (1.001-1.035); Urobilinogen Urine 0.2 mg/dL (<2.0); pH Urine 5.5 (5.0-9.0)
[2024-02-13 00:01] LABS: Add Urine Microscopic? YES
[2024-02-13 00:04] LABS: Lactic Acid Reflex < 0.5 mmol/L (0.7-2.0)
[2024-02-13 00:44] VITALS: BP 113/70; PULSE 70; RESP 16; O2SAT 100
[2024-02-13 02:17] VITALS: BP 92/55; PULSE 71; RESP 16; O2SAT 99
[2024-02-13 03:08] LABS: Erythrocyte Sedimentation Rate 21 mm/hr (0-20)
== END 2024-02-13 04:00 | disposition home or self-care (01) ==
PROVIDERS: Emergency Provider Physician Assistant; PCP Family Medicine
DX: N83.201 Unspecified ovarian cyst, right side (principal); Z20.822 Contact with and (suspected) exposure to COVID-19; F90.9 Attention-deficit hyperactivity disorder, unspecified type; Z87.442 Personal history of urinary calculi; Z86.2 Personal history of diseases of the blood and blood-forming organs and certain disorders involving the immune mechanism; Z87.891 Personal history of nicotine dependence; Z90.710 Acquired absence of both cervix and uterus; Z90.79 Acquired absence of other genital organ(s); R16.1 Splenomegaly, not elsewhere classified; R94.31 Abnormal electrocardiogram [ECG] [EKG]
CPT/HCPCS: 36415; 71046; 73110; 74177; 76856; 80053; 81001; 81025; 83605; 83690; 85025; 85652; 86140; 87637; 93005; 96361; 96374; 99284; A9270; J1885; J7030; Q9967

== ENCOUNTER 2024-05-15 10:38 | Outpatient (CLI) | payer OTHER, SELFPAY ==
--- NOTE | ~2024-05-15 | US_ITS ---
Pelvic ultrasound. Clinical History: Ovarian cyst Technique: Realtime transabdominal and transvaginal scanning of the pelvis was performed. Color flow Doppler and Doppler spectral analysis were performed. Findings: The uterus is absent, compatible prior hysterectomy. The right ovary measures 4.0 x 2.0 x 2.2 cm. No significant right ovarian or adnexal mass is seen. 1 .8 cm follicular cyst present. The left ovary measures 2.5 x 2.5 x 1.4 cm. No significant left ovarian or adnexal mass is seen. There is no evidence of free fluid in the cul de sac. Impression: No significant abnormality seen. Small follicular cysts in the ovaries are of doubtful clinical signi ficance. Prior hysterectomy. Reviewed, dictated and finalized at [facility]. Impression: No significant abnormality seen. Small follicular cysts in the ovaries are of d oubtful clinical significance. Prior hysterectomy.
== END 2024-05-15 10:39 | disposition home or self-care (01) ==
LOC: ANHIMG 10:39
PROVIDERS: PCP Family Medicine; Visit Provider Obstetrics & Gynecology
DX: N83.209 Unspecified ovarian cyst, unspecified side (principal)
CPT/HCPCS: 76856

== ENCOUNTER 2024-07-21 08:22 | Outpatient (CLI) | payer OTHER, SELFPAY ==
[2024-07-21 09:03] LABS: Alanine Aminotransferase 16 U/L (6-35); Albumin Level 4.6 g/dL (3.5-5.1); Alkaline Phosphatase 54 U/L (38-126); Anion Gap 2 mmol/L (4-12); Aspartate Amino Transferase 21 U/L (14-36); Bilirubin,Total 0.8 mg/dL (0.2-1.3); Blood Urea Nitrogen 19 mg/dL (7-17); Calcium 9.7 mg/dL (8.4-10.2); Carbon Dioxide 28 mmol/L (22-30); Chloride 103 mmol/L (98-107); Estimated Glomerular Filt Rate > 60; Glucose 108 mg/dL (65-110); Potassium 4.4 mmol/L (3.4-5.0); Sodium 133 mmol/L (137-145)
[2024-07-22 07:04] LABS: FSH 4.1 mIU/mL
== END 2024-07-21 08:23 | disposition home or self-care (01) ==
LOC: ANHLAB 08:23
PROVIDERS: PCP Family Medicine; Visit Provider Obstetrics & Gynecology
DX: N95.1 Menopausal and female climacteric states (principal)
CPT/HCPCS: 36415; 80053; 83001; 84443

== ENCOUNTER 2024-08-06 09:55 | Outpatient (CLI) | payer OTHER, SELFPAY ==
[2024-08-06 10:43] LABS: Basophils Percent Auto 0.7 % (0.2-1.2); Eosinophils Absolute Auto 0.1 K/mm3 (0-0.3); Eosinophils Percent Auto 1.8 % (0-4.4); Hematocrit 41.6 % (37.0-47.0); Hemoglobin 14.1 g/dL (12.0-15.0); Immature Granulocyte Absolute 0.01 K/mm3 (0.00-0.031); Immature Granulocyte Percent A 0.2 % (0-0.5); Lymphocytes Percent Auto 24.9 % (18.3-44.2); Mean Corpuscular HGB Conc 33.9 g/dl (32-36); Mean Corpuscular Hemoglobin 30.4 pg (26-34); Mean Corpuscular Volume 89.7 fl (80-100); Mean Platelet Volume 9.9 fl (7.4-10.4); Monocytes Absolute Auto 0.6 K/mm3 (0.1-0.6); Monocytes Percent Auto 9.3 % (2.6-8.5); Neutrophils Absolute Auto 3.8 K/mm3 (1.3-6.7); Neutrophils Percent Auto 63.1 % (45.5-73.1); Platelet Count Result 222 k/mm3 (150-375); Red Blood Count 4.64 M/mm3 (4.2-5.4); Red Cell Distribution Width 11.5 % (11.5-14.5)
[2024-08-06 11:03] LABS: Alanine Aminotransferase 15 U/L (6-35); Albumin Level 4.6 g/dL (3.5-5.1); Alkaline Phosphatase 56 U/L (38-126); Anion Gap 4 mmol/L (4-12); Aspartate Amino Transferase 20 U/L (14-36); Bilirubin,Total 1.1 mg/dL (0.2-1.3); Blood Urea Nitrogen 15 mg/dL (7-17); Calcium 9.5 mg/dL (8.4-10.2); Carbon Dioxide 27 mmol/L (22-30); Chloride 104 mmol/L (98-107); Cholesterol 178 mg/dL (0-200); Estimated Glomerular Filt Rate > 60; Glucose 94 mg/dL (65-110); HDL Direct 82 mg/dL; Potassium 4.2 mmol/L (3.4-5.0); Sodium 135 mmol/L (137-145); Triglycerides 57 mg/dL (<150)
[2024-08-06 11:14] LABS: LDL Cholesterol Direct 70 mg/dL
[2024-08-06 11:19] LABS: Vitamin D 25 Hydroxy 48.9 ng/mL
[2024-08-06 11:27] LABS: Iron 89 ug/dL (37-170)
[2024-08-06 11:28] LABS: Total Triiodothyronine (T3) 1.15 NG/ML (0.97-1.69)
[2024-08-06 11:36] LABS: Percent Iron Saturation 29 % (20-50)
[2024-08-06 11:43] LABS: Hemoglobin A1C 4.7 % (<5.7)
[2024-08-06 11:51] LABS: Hepatitis C Virus Antibody Negative (Negative)
[2024-08-06 11:55] LABS: Free T4 Free Thyroxine 1.03 ng/dL (0.78-2.19)
== END 2024-08-06 09:56 | disposition home or self-care (01) ==
LOC: ANHLAB 09:59
PROVIDERS: PCP Family Medicine; Referring Provider Registered Nurse; Visit Provider Family Medicine
DX: E78.5 Hyperlipidemia, unspecified (principal); I10 Essential (primary) hypertension; R53.83 Other fatigue; R73.01 Impaired fasting glucose; Z11.59 Encounter for screening for other viral diseases; L65.0 Telogen effluvium; B35.1 Tinea unguium
CPT/HCPCS: 36415; 80053; 80061; 82306; 82607; 83036; 83540; 83550; 84439; 84443; 84480; 85025; 86038; 86039; 86803

== ENCOUNTER 2024-12-09 09:25 | Outpatient (CLI) | payer OTHER, SELFPAY ==
--- NOTE | ~2024-12-09 | MM_ITS ---
EXAMINATION: MM screening kenneth BI w sha HISTORY: Screening TECHNIQUE: Craniocaudal and mediolateral oblique 3-D tomosynthesis images were obtained and synthetic 2-D images were generated. CAD analysis was submitted and interpreted. COMPARISON: Comparison to multiple prior studies sequentially, with oldest reviewed study dated 05/29. BREAST PARENCHYMAL COMPOSITION: Dense: The breasts are extremely dense, which lowers the sensitivity of mammography. FINDINGS: There is no evidence of suspicious mass, calcification, or architectural distortion to sugg est malignancy in either breast. There has been no suspicious interval change. IMPRESSION: 1. No mammographic evidence of malignancy. 2. Recommend routine screening mammography in one year. BI-RADS Category 1: Negative Reviewed, dictated and finalized at location A.
--- OUTSIDE RECORDS SUMMARY | 2024-12-09 09:34 | XMS_ITS | Clinical Summary ---
Author Organization [facility] Address [address] [place] [address] Phone Care Team Providers Care Orthodontic Technician Assistant Name Role Phone Carlos Vergara DO Primary Care Provider Social History Tobacco Use Types Packs/Day Years Used Date Smoking Tobacco: Never Assessed Comments Unknown Sex and Gender Information Value Date Recorded Sex Assigned at Not on file Legal Sex Female 8:43 AM CDT Gender Identity Not on file Sexual Orientation Not on file Plan of Treatment Health Maintenance Due Date Last Done Comments DTAP/TDAP/TD VACCINES (1 - Tdap) 10/10/1998 HEPATITIS B VACCINES (1 of 3 - 19+ 3-dose series) 10/10/1998 HPV/Cotest (21-29) 10/10/2000 CERVICAL CANCER SCREENING 10/10/2009 HPV/Cotest (30-65) 10/10/2009 PAP SMEAR 10/10/2009 BREAST CANCER SCREENING 2019 INFLUENZA VACCINE (#1) 2024 COLORECTAL SCREENING 10/10/2024 Colorectal Cancer Screening 10/10/2024 FIT-DNA Q 3 years 10/10/2024 FIT/FOBT Q 1 year 10/10/2024 Flex Sig/CT Colonography Q 5 years 10/10/2024 HPV VACCINES Aged Out No longer eligi ble based on patient's age to complete this topic Insurance [id number] MEDICAID Care Teams Orthodontic Technician Assistant Relationship Specialty Start Date End Date Carlos Vergara DO PCP - General 07/14/15
--- OUTSIDE RECORDS SUMMARY | 2024-12-09 09:34 | XMS_ITS | Clinical Summary ---
Author Organization [facility] [address] Address [address] [place] [address] Care Team Providers Care Photographic Processor Name Role Phone Ananda Zabala MD Primary Care Provider [phone] Allergies Active Allergy Reactions Criticality Noted Date Comments Adhesive Blisters,Fever,Other (See comments),Rash,Swelling High 03/20/2024 Morphine Itching Low 05/18/2014 Prednisone Hives,Rash,Swelling Medium 02/28/2021 Medications lisinopriL (PRINIVIL,ZESTRIL ) 20 mg tabletIndications :hypertension Take 1 tablet (20 mg total) by mouth daily before breakfast 4 Active ibuprofen (ADVIL,MOTRIN) 400 mg tabletIndications :Anti-inflammator y,Pain Take 1 tablet (400 mg total) by mouth every 8 (eight) hours as needed for pain Active multivitamin with iron (MULTIPLE VITAMINS WITH IRON ORAL)Indications: supplement Take 1 tablet by mouth systems test technician before breakfast Active acetaminophen-cod eine (TYLENOL with CODEINE #3) 300-30 mg per tabletIndications :Pain Take 1 tablet by mouth every 6 (six) hours as needed for pain 4 Active AdderalL 30 mg tabletIndications :Attention-Defici t Hyperactivity Disorder Take 1 tablet (30 mg total) by mouth systems test technician before breakfast 2 Active dextroamphetamine -amphetamine (ADDERALL) 10 mg tabletIndications :Attention-Defici t Hyperactivity Disorder Take 1 tablet (10 mg total) by mouth as needed 4 Active acetaminophen-cod eine (TYLENOL with CODEINE #3) 300-30 mg per tablet Take 1 tablet by mouth every 4 (four) hours as needed for pain 10 tablet 4 Active naloxone (NARCAN) 4 mg/actuation spray,non-aerosol Administer 1 spray into affected nostril(s) as needed for opioid reversal or respiratory depression Call 911. Administer a single spray in one nostril. Repeat every 3 minutes as needed if no or minimal response. 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 Encounters Date Type Department Care Team Description 09/21/2024 Orders Only [facility] [address] [place] [address] Provider, MD Vu from Last 3 Months Immunizations Immunization Administration Dates Next Due Pfizer SARS-CoV-2 Monovalent Vaccination (12+ Yrs) MARTINES-READY TO USE 08/16/2021 Surgical History Surgery Date Site/Laterality Comments HYSTERECTOMY 12/15/2019 WRIST SURGERY 11/27/2023 - 12/27/2023 Left SECTION 1996, 2001, 2014 & 2017 APPENDECTOMY 07/29/1997 - 07/28/1998 LIPOMA RESECTION 07/29/2018 - 07/28/2019 Back & Left inner thigh ULNAR TUNNEL RELEASE 07/29/2015 - 07/28/2016 Left COLONOSCOPY Multiple/yearly d/t Crohn's-- Last 06/2023 SECTION 1996,2001,2014&2017 FRACTURE SURGERY 2012 and 2023 ABDOMINAL SURGERY 2012 Medical History Medical History Date Comments Crohn's disease (HCC) Crohn's dx d ~2006-- Last flare ~2009 Anxiety Hypertension 04/28/2014 Neuromuscular disorder (HCC) 2018 Kidney stone 2015 Family History Medical History Relation Name Comments Rashes / Skin problems Brother joya oliveros Cancer Father samantha oliveros Cancer Father's Sister john oliveros Cancer Maternal Grandmother manas rivera Arthritis Mother chen oliveros Hypertension Mother chen oliveros Stroke Mother chen oliveros Cancer Paternal Grandmother aga olievros Anesthesia problems Neg Hx Relation Name Status Comments Brother joya oliveros Father samantha oliveros Father's Sister john oliveros Maternal Grandmother manas rivera Mother chen oliveros Paternal Grandmother aga oliveros Social History Tobacco Use Types Packs/Day Years Used Date Smoking Tobacco: Former Cigarettes 0.1 10 Q uit: 2014 Smokeless Tobacco: Never Tobacco Cessation:Counseling Given: Not Answered AUDIT-C Answer Date Recorded Q1: How often do you have a drink containing alc ohol? 2-4 times a month 05/28/2024 Q2: How many drinks containi ng alcohol do you have on a typical day when you are drinking? 1 or 2 05/28/2024 Q3: How often do you have si x or more drinks on one occasion? Never 05/28/2024 Personal Safety Answer Date Recorded Have you ever been in or are you currently in a harmful physical or emotional relationship or is someone making you feel afraid or unsafe? Denies 05/28/2024 Comments No Sex and Gender Information Value Date Recorded Sex Assigned at Not on file Legal Sex Female 1:07 PM HAT SPRAYER Gender Identity Not on file Sexual Orientation Not on file Obstetrics History Last Filed Vital Signs Vital Sign Reading Time Taken Comments Blood Pressure 128/86 09/07/2024 1:05 PM HAT SPRAYER Pulse 94 09/07/2024 1:05 PM HAT SPRAYER Temperature 36 C (96.8 F) 05/28/2024 1:05 PM CDT Respiratory Rate 13 05/28/2024 3:30 PM CDT Oxygen Saturation 99% 09/07/2024 1:05 PM HAT SPRAYER Inhaled Oxygen Concentration - - Weight 64.9 kg (143 lb) 09/07/2024 1:05 PM HAT SPRAYER Height 172.7 cm (5' 8 ) 09/07/2024 1:05 PM HAT SPRAYER Body Mass Index 21.74 09/07/2024 1:05 PM HAT SPRAYER Plan of Treatment Health Maintenance Due Date Last Done Comments Breast Cancer Screening-Mammogram 1979 Colon Cancer Screening-Colonoscopy 1979 Depression Screening 1979 Hepatitis C Screening 1979 DTaP/Tdap/Td Vaccine (1 - Tdap) 10/10/1990 Varicella Vaccines (1 of 2 - 13+ 2-dose series) 10/10/1992 Hepatitis B Screening 10/10/1997 Regular Well Visit/Exam 18-64 10/10/1997 Covid-19 Vaccine (4 - 2023-2 5 season) 2024 08/16/2021, 05/23/2021, 02/24/2021 Influenza Vaccine (Season Ended) 2025 HPV Vaccines Aged Out No longer eligi ble based on patient's age to complete this topic Pneumococcal vaccine <65 Aged Out No longer eligible based on patient's age to complete this topic Insurance [facility] Care Teams Photographic Processor Relationship Specialty Start Date End Date Ananda Zabala MD PCP - General Family Medicine 10/08/19
--- OUTSIDE RECORDS SUMMARY | 2024-12-09 09:34 | XMS_ITS | Patient Health Record ---
Author Organization [facility] Address [address] [address] Care Team Providers Care Sales Host Name Role Phone EMILY, COLLEEN Unavailable [phone] Reason For Referral No Information Plan Of Treatment No Information
--- OUTSIDE RECORDS SUMMARY | 2024-12-09 09:34 | XMS_ITS | Referral Summary ---
Author Organization [facility] [address] [facility] [address] Address [address] [place] [address] Care Team Providers Care Machine Maintenance Technician Name Role Phone Ananda Zabala MD Primary Care Provider [phone] Encounters Date Type Department Care Team Description 09/21/2024 Orders Only [facility] Card[facility] [address] [place] [address] Provider, MD Vu from Last 3 Months Allergies Active Allergy Reactions Criticality Noted Date [...] ORAL)Indications: supplement Take 1 tablet by mouth magnetic resonance imaging director before breakfast Active acetaminophen-cod eine (TYLENOL with CODEINE #3) 300-30 mg per tabletIndications :Pain Take 1 tablet by mouth every 6 (six) hours as needed for pain 4 Active AdderalL 30 mg tabletIndications :Attention-Defici t Hyperactivity Disorder Take 1 tablet (30 mg total) by mouth magnetic resonance imaging director before breakfast 2 Active dextroamphetamine -amphetamine (ADDERALL) [...] 12/17/2023 Neuropathy of right peroneal nerve 12/17/2023 Immunizations Immunization Administration Dates Next Due Pfizer SARS-CoV-2 Monovalent Vaccination (12+ Yrs) MARTINES-READY TO USE 08/16/2021 Social History Tobacco Use Types Packs/Day Years Used Date Smoking Tobacco: Former Cigarettes 0.1 10 Q uit: 2013 Smokeless Tobacco: Never Tobacco Cessation:Counseling Given: Not [...] on file Legal Sex Female 1:07 PM HEALTH PROGRAM MANAGER Gender Identity Not on file Sexual Orientation Not on file Last Filed Vital Signs Vital Sign Reading Time Taken Comments Blood Pressure 128/86 09/07/2024 1:05 PM HEALTH PROGRAM MANAGER Pulse 94 09/07/2024 1:05 PM HEALTH PROGRAM MANAGER Temperature 36 C (96.8 F) 05/28/2024 1:05 PM CDT Respiratory Rate 13 05/28/2024 3:30 PM CDT Oxygen Saturation 99% 09/07/2024 1:05 PM HEALTH PROGRAM MANAGER Inhaled Oxygen Concentration - - Weight 64.9 kg (143 lb) 09/07/2024 1:05 PM HEALTH PROGRAM MANAGER Height 172.7 cm (5' 8 ) 09/07/2024 1:05 PM HEALTH PROGRAM MANAGER Body Mass Index 21.74 09/07/2024 1:05 PM HEALTH PROGRAM MANAGER Plan of Treatment Not on file Insurance [facility] Care Teams Machine Maintenance Technician Relationship Specialty Start Date End Date Ananda Zabala MD PCP - General Family Medicine 10/08/19
--- OUTSIDE RECORDS SUMMARY | 2024-12-09 09:34 | XMS_ITS | Clinical Summary ---
Author Organization [facility] Address [address] 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 This disclosure is being madepursuant to the Care Everywhere program and may not contain all information available regarding this patient. Last updated 18.[facility] Allergies Active Allergy Reactions Criticality Noted Date Comments Morphine Itching 05/18/2014 Prednisone Unknown 02/28/2021 Medications * Be aware that medications may not be up to date on this document. Alwaysverify current medications with the patient. amphetamine-dex troamphetamine (ADDERALL) 20 MG tabletIndicatio ns:Attention Deficit Disorder (Inactive) Take 40 mg by mouth every morning. Indications: Attention Deficit Disorder Active minocycline (MINOCIN) 100 MG capsule Take 100 mg by mouth 2 times daily 1 Active dicyclomine (BENTYL) 20 MG tablet Take 20 mg by mouth 4 times daily 1 Active cyclobenzaprine (FLEXERIL) 10 MG tablet Take 10 mg by mouth 3 times daily as needed FOR MUSCLE SPASM 1 Active Multiple Vitamins-Minera ls (WOMENS MULTI PO) Active IBUPROFEN PO Take by mouth as needed Active DULoxetine (CYMBALTA) 30 MG capsule Take 1 (one) capsule by mouth once daily Take two capsules at bedtime 60 capsule 2 2 Active lidocaine (Lidoderm) 5 % patch Apply 1 (one) patch to skin once daily Apply patch to most painful area and remove after 12 hours. May reapply a new patch 12 hours later. 30 patch 2 3 Active Active Problems Problem Noted Date Diagnosed Date ADHD (attention deficit hyperactivity disorder) Neuropathy of right peroneal nerve Family History Medical History Relation Name Comments Hypertension Brother Cancer Maternal Grandfather stomach Cancer Maternal Grandmother liver Hypertension Mother Cancer Paternal Grandfather throat Lupus Paternal Grandfather Relation Name Status Comments Brother Maternal Grandfather Maternal Grandmother Mother Paternal Grandfather Social History Tobacco Use Types Packs/Day Years Used Date Smoking Tobacco: Former Cigarettes 1 10 0 04/27/2004 - 04/27/2014 Smokeless Tobacco: Never Alcohol Use Standard Drinks/Week Comments Yes 0 (1 standard drink = 0.6 oz pure alcohol) prior to drank 3-5 glasses of wine now occasional glass of wine Comments No Sex and Gender Information Value Date Recorded Sex Assigned at Not on file 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 Gender Identity Not on file Sexual Orientation Not on file Last Filed Vital Signs Vital Sign Reading Time Taken Comments Blood Pressure 134/77 02/28/2021 8:05 AM CDT Pulse 91 02/28/2021 8:05 AM CDT Temperature 36.6 C (97.9 F) 02/28/2021 8:05 AM CDT Respiratory Rate - - Oxygen Saturation - - Inhaled Oxygen Concentration - - Weight 60.8 kg (134 lb) 02/28/2021 8:05 AM CDT Height 170.2 cm (5' 7 ) 02/28/2021 8:05 AM CDT Body Mass Index 20.99 02/28/2021 8:05 AM CDT Plan of Treatment Health Maintenance Due Date Last Done Comments COLOGUARD (AGES 45-75) - COL ON CA SCREENING 1979 COLON MONITORING 1979 COLONOSCOPY - COLON CA SCREENING 1979 CT COLONOGRAPHY - COLON CA SCREENING 1979 Colorectal Cancer Screening 1979 FIT - COLON CA SCREENING 1979 FLEX SIG - COLON CA SCREENING 1979 LIPID TESTING 1979 MAMMOGRAM 1979 PAP SMEAR 1979 HIV SCREENING 10/10/1994 HEPATITIS C SCREENING 10/06/1997 DTAP/TDAP/TD VACCINES (1 - Tdap) 10/10/1998 HEPATITIS B VACCINE (1 of 3 - 19+ 3-dose series) 10/10/1998 COVID-19 VACCINE (2 - 2023-2 5 season) 2024 08/16/2021 DEPRESSION SCREENING 07/29/2024 INFLUENZA VACCINE (Season Ended) 2025 ZOSTER VACCINE (1 of 2) 10/10/2029 HIB VACCINE Aged Out No longer eligi ble based on patient's age to complete this topic HPV VACCINE Aged Out No longer eligi ble based on patient's age to complete this topic MENINGOCOCCAL (Group B) VACC INE SHARED DECISION-MAKING Aged Out No longer eligibl e based on patient's age to complete this topic MENINGOCOCCAL GROUPS A/C/Y/W VACCINE Aged Out No longer eligible b ased on patient's age to complete this topic PNEUMOCOCCAL VACCINE Aged Out No long er eligible based on patient's age to complete this topic Insurance [facility] [employer] [facility] Care Teams Field Mechanical Meter Tester Relationship Specialty Start Date End Date Ananda Zabala MD [address] [place] [address] PCP - General 08/29/20
--- OUTSIDE RECORDS SUMMARY | 2024-12-09 09:34 | XMS_ITS | Clinical Summary ---
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 Name Role Phone Unavailable Primary Care Provider Unavailabl e Social History Tobacco Use Types Packs/Day Years Used Date Smoking Tobacco: Never Assessed Comments Unknown Sex and Gender Information Value Date Recorded Sex Assigned at Not on file Legal Sex Female 8:20 PM CDT Gender Identity Not on file Sexual Orientation Not on file Plan of Treatment Health Maintenance Due Date Last Done Comments Cervical Cancer Screening Pa p Smear (Age 30 to 64) Every 3 Years 1979 Colorectal Cancer Screening Colonoscopy (10 Years) 1979 Annual Physical 10/10/1982 Hepatitis C 10/10/1997 DTaP, Tdap and Td Vaccines ( 1 - Tdap) 10/10/1998 Hepatitis B Vaccines (1 of 3 - 19+ 3-dose series) 10/10/1998 Cervical Cancer Screening Pa p with HPV Testing (Age 30 to 64) Every 5 Years 10/10/2009 Cervical Cancer Screening with HPV 10/10/2009 Mammogram Screening 2019 COVID-19 Vaccine ( - 2023-2 5 season) 2024 HPV Vaccines Aged Out No longer eligi ble based on patient's age to complete this topic Meningococcal B Vaccine Aged Out No l onger eligible based on patient's age to complete this topic Meningococcal Vaccine Aged Out No carlos aisha eligible based on patient's age to complete this topic Pneumococcal Vaccine: Pediat rics (0 to 5 Years) and At-Risk Patients (6 to 49 Years) Aged Out No longer eligible b ased on patient's age to complete this topic RSV Immunizations Under 20 Months Aged Out No longer eligible based on patient's age to complete this topic
== END 2024-12-09 09:26 | disposition home or self-care (01) ==
LOC: ANHIMG 09:27
PROVIDERS: PCP Family Medicine; Visit Provider Obstetrics & Gynecology
DX: Z12.31 Encounter for screening mammogram for malignant neoplasm of breast (principal)
CPT/HCPCS: 77063; 77067